=== PATIENT | female | born 1965 | race Caucasian/White ===

== ENCOUNTER 2022-02-14 10:00 | Outpatient (RCR) | payer MEDICARE, OTHER, SELFPAY | END 2022-05-22 11:15 | disposition home or self-care (01) | PROVIDERS: Visit Provider Physician Assistant | DX: G11.9 Hereditary ataxia, unspecified (principal); Z51.89 Encounter for other specified aftercare | CPT/HCPCS: 97110; 97162 ==

== ENCOUNTER 2022-02-19 09:36 | Emergency (ER) | payer MEDICARE, OTHER, SELFPAY ==
[2022-02-19 10:09] VITALS: BP 129/85; PULSE 91; RESP 20; TEMP 37.3; O2SAT 96; BMI 24.4
--- NOTE | 2022-02-19 10:48 | ED_ITS ---
HPI - General Adult General Time Seen by Provider: 10:48 Date Seen: 02/19/22 Chief complaint: Psychiatric Problem/Disorder Stated complaint: Wants to Time Seen by Provider: 02/19/22 10:47 Source: patient, RN notes reviewed and old records reviewed Mode of arrival: ambulatory Limitations: no limitations History of Present Illness HPI narrative: Patient is a 56-year-old female coming into the ER of her own accord stating she wants to . She states she can not do it because she is too chicken of the pain. She has been hospitalized for depression and mental health issues in 1985 and then sometime in after her mom . 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 Her boyfriend is an awesome support to her but she feels like he has become her pulley worker rather than a boyfriend. She had some recent strife with her children. Her 2 daughters were fighting and she got in the middle. Now the daughter with her 3-month-old granddaughter will supposedly never let her see the grandbaby again. She states her life is completely screwed up. She just wants to . She is on BuSpar and escitalopram. Does have some clonazepam but has not used it. She states she has been smoking marijuana to just numb the pain. She alludes to the fact that her children state that she needs help. Related Data Home Medications Medication Instructions Recorded Confirmed buspirone 30 mg tablet 30 mg PO BID 02/19/22 02/19/22 clonazepam 0.5 mg tablet 0.5 mg PO BID 02/19/22 02/19/22 escitalopram oxalate 20 mg tablet 20 mg PO .every morning 02/19/22 02/19/22 hyoscyamine sulfate 0.125 mg tablet 0.125 mg PO Q4H PRN 02/19/22 02/19/22 Allergies Allergy/AdvReac Type Severity Reaction Status Date / Time Sulfa (Sulfonamide Allergy Verified 02/19/22 10:09 Antibiotics) Review of Systems Status of ROS: Reports: 6 or more systems reviewed and unremarkable except as noted in History and below PFSH PFSH Social History Smoking Status: Current some day smoker Do you use any of these nicotine containing products: Other Second hand tobacco smoke exposure: Yes How often do you have a drink containing alcohol: never How often do you have six or more drinks on one occasion: Never AUDIT-C Alcohol total score: 0 Non-prescribed substance use: marijuana (any form) service: No Exam Const: Vital Signs, click to edit/add: Vital Signs - 24 hr 02/19/22 10:09 Temperature 99.1 F Pulse Rate [Apical ] 91 Respiratory Rate 20 Blood Pressure [Ri ght Upper Arm] 129/85 Pulse Oximetry 96 Oxygen Delivery Me thod Room Air Documenting provider has reviewed patient's vital signs: yes Common normals: no apparent distress, average body habitus, oriented x3, no limitations, healthy appearing, alert and well nourished General appearance: other (Crying and tearful during the interaction) HENMT: Common normals: normocephalic, head/scalp atraumatic, hearing grossly normal bilaterally, external ears normal, external nose normal, nasal mucous membranes and turbinates normal, moist oral mucous membranes, oropharynx normal, dentition normal and gingiva normal Head and scalp: normocephalic and atraumatic Nose: external nose normal and nasal mucous membranes and turbinates normal External ear: external ears normal Eye: Common normals: PERRL, EOMs intact bilaterally, conjunctivae normal and no scleral icterus Conjunctiva: conjunctiva(e) normal Pupil: PERRL Neck & C-Spine: Common normals: full ROM, no lymphadenopathy, supple, no meningeal signs, no JVD, thyroid normal and no carotid bruits Thyroid: thyroid normal Resp: Common normals: normal respiratory effort, no retractions, no use of accessory muscles and clear to auscultation bilaterally Auscultation: clear to auscultation bilaterally Cardio: Common normals: no JVD, regular rate, regular rhythm, S1 normal heart sound, S2 normal heart sound, no gallops, no clicks, no murmurs and no rub Rate: regular rate Rhythm: regular rhythm Heart sounds: S1 normal and S2 normal GI: Common normals: Normal to inspection, nondistended, normoactive bowel sounds present, soft to palpation, non-tender, no hepatosplenomegaly, no masses and no bruits Palpation: soft and no hepatosplenomegaly Extremity: Other: Has a bilateral lower extremity braces on. Neuro: Rosy Coma Scale: document GCS findings Rosy coma scale eye opening: Spontaneous (4) Allerton coma scale verbal response: Orientated (5) [place] coma scale motor response: Obey commands (6) [place]erton coma scale total score: 15 Common normals: oriented x3 Sensorium/orientation: alert Meningeal signs: no meningeal signs Other: Has a head tremor and some very minimal truncal ataxia noted. Is noted to walk with a walker. Psych: Common normals: thought process normal (But does perseverate on current situation with her children), cooperative and speech normal Appearance: grossly normal Activity/motor behavior: appropriate eye contact Speech: normal speech Mood and affect: depressed mood, sad and tearful Thought process: normal thought process (But does perseverate on current situation with her children) Thought content: suicidality Attention/concentration: attention grossly intact and concentration grossly intact Memory/cognition: memory grossly intact Skin: Common normals: no rashes or lesions noted General skin exam: no rashes or lesions noted Course Course Hospital Course: We will do the mental health screening laboratory analysis including COVID and toxicology. She will likely show THC use she admits to have been smoking marijuana but doubt will find anything else concerning with her. We will put an order in for [facility]. I will have to wait and see what they feel can be done, if there is possible outpatient resources for her. Hospitalization may need to be considered for her mental health, await the assistance of telehealth. Consultations Consultation #1: Spoke with Alva from [email or web address]. She feels at this time patient is going to need hospitalization. She stated that she did explain to the patient that there were probably be a delay for psychiatric hospitalization and patient expressed some frustration. If we have no placement for patient by tomorrow morning, Alva recommended that we resubmit for another telehealth consultation and see if there is any change. At this time, Alva was not able to get patient to agree to any outpatient plans, really did not feel like she could get her st abilized enough to be made for outpatient followup. Time: 12:45 Vital Signs Vital signs: Initial Vital Signs Temperature 99.1 F 02/19/22 10:09 Temperature Source Temporal Artery Scan 02/19/22 10:09 Pulse Rate 91 02/19/22 10:09 Pulse Rhythm 02/19/22 10:09 Respiratory Rate 20 02/19/22 10:09 Blood Pressure 129/85 02/19/22 10:09 Blood Pressure Mean 99 10/03/22 10:09 Blood Pressure Position Supine 02/19/22 10:09 Pulse Oximetry 96 02/19/22 10:09 Oxygen Delivery Method 02/19/22 10:09 Vital Signs Temperature 99.1 F 02/19/22 10:09 Pulse Rate 91 02/19/22 10:09 Respiratory Rate 20 02/19/22 10:09 Blood Pressure 129/85 02/19/22 10:09 Pulse Oximetry 96 02/19/22 10:09 Oxygen Delivery Method 02/19/22 10:09 Temperature 99.1 F 02/19/22 10:09 Pulse Rate 91 02/19/22 10:09 Respiratory Rate 20 02/19/22 10:09 Blood Pressure 129/85 02/19/22 10:09 Pulse Oximetry 96 02/19/22 10:09 Oxygen Delivery Method 02/19/22 10:09 Medical Decision Making Lab Data Lab results reviewed: Yes I reviewed the patient's lab results Labs: Lab Results 02/19/22 02/19/22 02/19/22 Range/Units 10:42 10:56 11:00 WBC (4.50-11.00) K/uL RBC (4.00-5.20) m/uL Hgb (12.0-16.0) gm/dL Hct (33.0-51.0) % MCV (80-100) fL MCH (26-34) pg MCHC (32-36) gm/dL RDW Coeff of Cyrus (11.5-15.5) % Plt Count (140-440) K/uL Neut % (Auto) (42.0-72.0) % Lymph % (Auto) (20-44) % [place] % (Auto) (0.0-11.0) % Eos % (Auto) (0.0-7.0) % Baso % (Auto) (0.0-3.0) % Neut # (Auto) (1.7-7.0) K/uL Lymph # (Auto) (0.90-2.90) K/uL [place] # (Auto) (0.00-0.90) K/UL Eos # (Auto) (0.00-0.50) K/uL Baso # (Auto) (0.00-0.30) K/uL Abs Immat Gran (auto) (0.00-0.30) K/uL Sodium (135-149) mmol/L Potassium (3.6-5.1) mmol/L Chloride (96-114) mmol/L Carbon Dioxide (20-32) mmol/L BUN (7-30) mg/dL Creatinine (0.5-1.5) mg/dL Estimated Creat Clear Estimated GFR ml/min Glucose (60-115) mg/dL Calcium (8.4-10.6) mg/dL Total Bilirubin (0.1-1.5) mg/dL AST (12-35) U/L ALT (4-35) U/L Alkaline Phosphatase (40-150) U/L Total Protein (6.0-8.3) g/dL Albumin (3.3-5.0) g/dL TSH (0.270-4.200) uIU/mL Free T4 (0.70-1.85) ng/dL Urine Color Yellow (Yellow) Urine Appearance Clear (Clear) Urine pH 6.0 (5.0-8.5) Ur Specific Bowie <= 1.005 (1.000-1.030) Urine Protein Negative (Negative) Urine Glucose (UA) Negative (Negative) Urine Ketones Negative (Negative) Urine Blood Trace-intact A (Negative) Urine Nitrite Negative (Negative) Urine Bilirubin Negative (Negative) Urine Urobilinogen 0.2 (0.2-1.0) Ur Leukocyte Esterase Negative (Negative) Urine RBC 0-2 (0-2) Urine WBC 0-2 (0-5) Ur Squamous Epith Cells Few (None-Few) Urine Bacteria Moderate A (None) Urine Yeast Moderate A (None) Salicylates (1.0-10) mg/dL Urine Opiates Screen Negative (Negative) Ur Oxycodone Screen Negative (Negative) Urine Methadone Screen Negative (Negative) Ur Propoxyphene Screen Negative (Negative) Acetaminophen (10.0-30.0) ug/mL Ur Barbiturates Screen Negative (Negative) U Tricyclic Antidepress Negative (Negative) Ur Phencyclidine Scrn Negative (Negative) Ur Amphetamines Screen Negative (Negative) U Methamphetamines Scrn Negative (Negative) U Benzodiazepines Scrn Negative (Negative) Urine Cocaine Screen Negative (Negative) U Marijuana (THC) Screen POSITIVE A* (Negative) Ur Drug Screen Comment See Note Ethyl Alcohol (0.01-0.03) % SARS-CoV-2 (PCR) Negative SARS-CoV-2 (Negative) 02/19/22 02/19/22 02/19/22 Range/Units 11:15 11:15 11:15 WBC 6.52 (4.50-11.00) K/uL RBC 4.63 (4.00-5.20) m/uL Hgb 13.7 (12.0-16.0) gm/dL Hct 40.9 (33.0-51.0) % MCV 88 (80-100) fL MCH 30 (26-34) pg MCHC 34 (32-36) gm/dL RDW Coeff of Cyrus 13.8 (11.5-15.5) % Plt Count 229 (140-440) K/uL Neut % (Auto) 67.8 (42.0-72.0) % Lymph % (Auto) 27.9 (20-44) % [place] % (Auto) 3.7 (0.0-11.0) % Eos % (Auto) 0.2 (0.0-7.0) % Baso % (Auto) 0.2 (0.0-3.0) % Neut # (Auto) 4.43 (1.7-7.0) K/uL Lymph # (Auto) 1.82 (0.90-2.90) K/uL [place] # (Auto) 0.20 (0.00-0.90) K/UL Eos # (Auto) 0.01 (0.00-0.50) K/uL Baso # (Auto) 0.01 (0.00-0.30) K/uL Abs Immat Gran (auto) 0.01 (0.00-0.30) K/uL Sodium 142 (135-149) mmol/L Potassium 3.9 (3.6-5.1) mmol/L Chloride 107 (96-114) mmol/L Carbon Dioxide 28 (20-32) mmol/L BUN 9 (7-30) mg/dL Creatinine 0.8 (0.5-1.5) mg/dL Estimated Creat Clear 57.07 Estimated GFR 87 ml/min Glucose 104 (60-115) mg/dL Calcium 10.0 (8.4-10.6) mg/dL Total Bilirubin 1.2 (0.1-1.5) mg/dL AST 27 (12-35) U/L ALT 14 (4-35) U/L Alkaline Phosphatase 71 (40-150) U/L Total Protein 7.5 (6.0-8.3) g/dL Albumin 4.7 (3.3-5.0) g/dL TSH 0.242 L (0.270-4.200) uIU/mL Free T4 1.23 (0.70-1.85) ng/dL Urine Color (Yellow) Urine Appearance (Clear) Urine pH (5.0-8.5) Ur Specific Bowie (1.000-1.030) Urine Protein (Negative) Urine Glucose (UA) (Negative) Urine Ketones (Negative) Urine Blood (Negative) Urine Nitrite (Negative) Urine Bilirubin (Negative) Urine Urobilinogen (0.2-1.0) Ur Leukocyte Esterase (Negative) Urine RBC (0-2) Urine WBC (0-5) Ur Squamous Epith Cells (None-Few) Urine Bacteria (None) Urine Yeast (None) Salicylates < 1.0 L (1.0-10) mg/dL Urine Opiates Screen (Negative) Ur Oxycodone Screen (Negative) Urine Methadone Screen (Negative) Ur Propoxyphene Screen (Negative) Acetaminophen < 10.0 L (10.0-30.0) ug/mL Ur Barbiturates Screen (Negative) U Tricyclic Antidepress (Negative) Ur Phencyclidine Scrn (Negative) Ur Amphetamines Screen (Negative) U Methamphetamines Scrn (Negative) U Benzodiazepines Scrn (Negative) Urine Cocaine Screen (Negative) U Marijuana (THC) Screen (Negative) Ur Drug Screen Comment Ethyl Alcohol < 0.01 L (0.01-0.03) % SARS-CoV-2 (PCR) (Negative) Critical Care Time Critical Care Time Critical Care Time: No Discharge Plan Discharge Clinical Impression: Suicidal ideation, Severe major depression Patient Disposition: Xfer Psychiatric Hosp Discharge Location: [facility] Condition: Unchanged Prescriptions: No Action buspirone 30 mg tablet 30 mg PO BID clonazepam 0.5 mg tablet 0.5 mg PO BID escitalopram oxalate 20 mg tablet 20 mg PO .every morning hyoscyamine sulfate 0.125 mg tablet 0.125 mg PO Q4H PRN Label Comments: TAKE 1 TABLET BY MOUTH EVERY 4 HOURS NEEDED. Stand Alone Forms: [employer]Up Info Instructions
[2022-02-19 10:58] LABS: Appearance Urine Clear (Clear); Bilirubin Urine Negative (Negative); Blood Urine Trace-intact (Negative); Color Urine Yellow (Yellow); Glucose Urine Negative (Negative); Ketones Urine Negative (Negative); Leukocyte Esterase Urine Negative (Negative); Nitrite Urine Negative (Negative); Protein Urine Negative (Negative); Specific Gravity Urine <= 1.005 (1.000-1.030); Urobilinogen Urine 0.2 (0.2-1.0)
[2022-02-19 11:33] LABS: Bacteria Urine Moderate; RBC Urine 0-2 (0-2); Squamous Epithelial Cell Urine Few (None-Few); WBC Urine 0-2 (0-5)
[2022-02-19 11:45] LABS: Amphetamine Screen Urine Negative (Negative); Barbiturate Screen Urine Negative (Negative); Benzodiazepines Screen Urine Negative (Negative); Cocaine Screen Urine Negative (Negative); Methadone Screen Urine Negative (Negative); Methamphetamines Screen Urine Negative (Negative); Opiate Screen Urine Negative (Negative); Oxycodone Screen Urine Negative (Negative); Phencyclidine Screen Urine Negative (Negative); Tricyclic Antidepressant Urine Negative (Negative)
--- NOTE | 2022-02-19 11:45 | ED.NURSE ---
DEC assessment started.
[2022-02-19 11:52] LABS: Albumin* 4.7 g/dL (3.3-5.0); Chloride* 107 mmol/L (96-114)
[2022-02-19 11:53] LABS: Potassium* 3.9 mmol/L (3.6-5.1); Sodium* 142 mmol/L (135-149)
[2022-02-19 11:55] LABS: Aspartate Amino Transferase* 27 U/L (12-35); Bilirubin Total* 1.2 mg/dL (0.1-1.5); Carbon Dioxide* 28 mmol/L (20-32); Creatinine* 0.8 mg/dL (0.5-1.5); Est. Creatinine Clearance* 57.07; Estimated Glomerular Filt Rate 87 ml/min
[2022-02-19 11:56] LABS: Alanine Aminotransferase* 14 U/L (4-35); Alkaline Phosphatase* 71 U/L (40-150); Blood Urea Nitrogen* 9 mg/dL (7-30); Glucose* 104 mg/dL (60-115); Total Protein* 7.5 g/dL (6.0-8.3)
[2022-02-19 12:08] LABS: Acetaminophen* < 10.0 ug/mL (10.0-30.0); Ethanol* < 0.01 % (0.01-0.03); Salicylate* < 1.0 mg/dL (1.0-10)
--- OUTSIDE RECORDS SUMMARY | 2022-02-19 12:23 | XMS_ITS | Clinical Summary ---
:1965 Author Organization [employer] [place] [address] Care Team Providers Name Role Phone Angela Naranjo Primary Care Provider Allergies Active Allergy Reactions Severity Noted Date Comments Sulfa (Sulfonamide Antibiotics) Rash Low 7 Medications Medication Sig Dispensed Refills Start Date End Date Status cholecalciferol (VITAMIN Take 1 capsule 0 10/06/2010 Active D) 1,000 unit capsule by mouth once daily. miscellaneous medical Shower chair 1 Units 0 06/25/2019 Active supply miscIndications: Ataxia, unspecified WalkerIndications: Walker with wheels,seat,hand brakes,and basket for home use. 1 Device 0 03/24/2020 Active Ataxia, unspecified 99 years. busPIRone (BUSPAR) 30 mg Take 1 Tablet 180 Tablet 3 05/30/2021 Active tabletIndications: HILARIA (30 mg) by (generalized anxiety mouth 2 times disorder) daily. escitalopram oxalate Take 1 Tablet 90 tablet. 3 05/30/2021 Active (LEXAPRO) 20 mg (20 mg) by tabletIndications: mouth every Generalized anxiety morning. disorder turmeric-g.tea-pterostil Take by mouth. 0 08/09/2021 Active -brocc (Nrf2 Activator) [id number] mg capIndications: Chronic diarrhea, Constipation, unspecified constipation type azithromycin (ZITHROMAX) Take 500 mg (2 6 Tablet 0 11/30/2021 Active 250 mg tabs) by mouth tabletIndications: Acute on day 1, then non-recurrent maxillary 250 mg (1 tab) sinusitis daily for days 2-5. dicyclomine (BENTYL) 10 Take 1 Capsule 90 Capsule 1 12/01/2021 Active mg capsuleIndications: (10 mg) by Irritable bowel syndrome mouth every 6 with diarrhea hours if needed (abdominal pain/diarrhea). clonazePAM (KLONOPIN) Take 1 Tablet 60 Tablet 5 12/21/2021 Active 0.5 mg (0.5 mg) by tabletIndications: mouth in the Generalized anxiety morning and 1 disorder Tablet (0.5 mg) in the evening. Active Problems Problem Noted Date Hereditary ataxia, unspecified 06/20/2021 Olecranon bursitis of right elbow 11/20/2020 Major depressive disorder, recurrent episode, moderate 04/11/2020 Closed fracture of left proximal tibia marginal stable 01/31/2017 Rupture of anterior cruciate ligament of left knee 03/2017 Contusion of tibial plateau, left 01/28/2017 Menorrhagia 08/13/2013 Cyst of ovary 08/13/2013 Fibroid uterus 07/30/2013 Generalized anxiety disorder 05/30/2010 Ataxia, unspecified 03/29/2010 Vitamin D deficiency 01/05/2010 Polyp of colon Resolved Problems Problem Noted Date Resolved Date S/P THEA-BSO 08/13/2013 08/13/2013 Grief 03/29/2010 10/19/2021 MDD (major depressive disorder), recurrent, in partial 02/1605/23/2020 remission Major depressive disorder, recurrent episode, in partial or 10/23/2007 02/11/2012 unspecified remission Encounters Date Type Specialty Care Team Description 02/19/2022 Nurse Triage Angela Naranjo, Depress ion HARRY 02/19/2022 Telephone Angela Naranjo PA 01/18/2022 Phone Office Visit Malathi Concepcion Phon e Visit [facility] 12/21/2021 Phone Office Visit Malathi Concepcion Phon e Visit; Trmt Plan [facility] 12/21/2021 Refill Angela Naranjo, Refill Request HARRY (clonazePAM (KL ONOPIN) 0.5 mg tablet) 12/01/2021 Telephone Angela Naranjo Questio ns PA 11/30/2021 Office Visit Angela Naranjo, Medicat ion Management PA (Diarrhea since last November 15 ); Nose Pr oblem (Had a runny nose an d sinus pressure, took home test and were negati ve for COVID-19, Sore throat ) 11/30/2021 Travel 11/29/2021 Telephone Angela Naranjo, Prior A uthorization PA (hyoscyamine (L evsin) 0.125 mg tablet (DENIED)) 11/22/2021 Phone Office Visit Malathi Concepcion Phon e Visit [facility] 11/22/2021 Travel from Last 3 Months Immunizations Name Administration Dates Next Due AMB Influenza, IIV3 (Age >=3 02/21/2013, 03/14/2011, 009 years)(Flu Clinic Only) AMB Influenza, IIV4 PF (=>6 mos 03/03/2015 Flulaval,Fluzone Fluarix)(Flu Clinic Only) COVID-19 vaccine (Moderna 09/07/2020, 08/10/2020 100mcg/0.5mL) PF, MDV Influenza A (H1N1), Inactivated 05/05/2009 Influenza, IIV3 (Age 6-35 mos) 03/14/2011 Influenza, IIV3 (Age >=3 years) 02/11/2012, 04/17/2010 Influenza, IIV4 02/19/2020, 03/10/2019, 02/04/2018, 03/19/2016, 03/09/2014 Influenza, IIV4 (=>6mos) MDV 02/11/2017 Tdap 05/20/2010 Family History Medical History Relation Name Comments Cancer Father Leukemia Father Lung cancer Mother Cancer-breast Sister Relation Name Status Comments Brother Alive Daughter Alive Father Maternal Grandfather Maternal Grandmother Mother Paternal Grandfather Paternal Grandmother Sister Alive Son Alive Social History Tobacco Use Types Packs/Day Years Used Date Never Smoker Smokeless Tobacco: Never Used Tobacco Cessation: Counseling Given: Yes Alcohol Use Standard Drinks/Week Comments No 0 (1 standard drink = 0.6 oz pure alcoho l) Sex Assigned at Date Recorded Female 05/24/2020 3:18 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 Obstetrics History Para Term AB IAB SAB Ectopic Multiple Living Live Births 3 3 Date Outcome GA Total Labor/2nd/3rd Weight Sex Delivery Anes PTL Annemarie A 1 A5 Name Clin Labor Last Filed Vital Signs Vital Sign Reading Time Taken Comments Blood Pressure 110/60 11/30/2021 9:59 AM CDT Pulse 74 11/30/2021 9:59 AM CDT Temperature 36.7 ??C (98.1 ??F) 10/27/2021 12:14 PM CDT Respiratory Rate 16 10/27/2021 12:14 PM CDT Oxygen Saturation 95% 10/27/2021 12:14 PM CDT Inhaled Oxygen Concentration - - Weight 55.3 kg (122 lb) 11/30/2021 9:59 AM CDT Height 152.4 cm (5') 06/19/2021 10:12 AM [employer] MANAGER Body Mass Index 23.83 06/19/2021 10:12 AM [employer] MANAGER Plan of Treatment Health Maintenance Due Date Last Done Comments Hepatitis C screening for age 0206/29/1984 18-79 Zoster (shingles) series for age 0206/29/2016 50+ (1 of 2) Tetanus booster 05/20/2020 05/20/2010, 05/20/2010 COVID-19 vaccine series (4 - 06/01/2021 04/06/2021, 021, Booster for Moderna series) 08/10/2020 Mammogram for age 45-75 09/07/2021 09/07/2020, 08/31/2020, 07/09/2019, Additional history exists Influenza for age 50-64 01/18/2022 02/19/2020, 03/10/2019, 02/04/2018, Additional history exists Depression screening for age 12+ 04/19/2022 04/19/2021, , 02/13/2021, Additional history exists BMI (ht and wt on same day) for 06/19/2022 06/19/2021, 07/05/2018, age 18+ 12/11/2018, Additional history exists Lipids for age 45-75 04/23/2024 04/23/2019, 10/21/2017, 06/07/2016, Additional history exists Colonoscopy through age 75 02/27/2026 02/27/2021, 8 Tdap Completed 05/20/2010 Results Not on filefrom Last 3 Months Insurance Payer Benefit Plan / Subscriber ID Effective Dates Phone Addre ss Type Group MEDICARE PART MEDICARE PART A HB [id number] 2012-Presen ATTN: CLAIMS A - HB USE ONLY t [address] [place] [address] MEDICARE PART MEDICARE PART B HB [id number] 2012-Presen ATTN: CLAIMS B - HB USE ONLY t [address] [place] [address] MEDICARE PART MEDICARE PART A HB [id number] 2012-Presen ATTN: CLAIMS A - HB USE ONLY t [address] [place] [address] MEDICARE - PB MEDICARE PB ONLY [id number] 2015-Prese ATTN: CLAIMS USE ONLY nt [address] [place] [address] MEDICA [place] MEDICA [id number] 2021-Presen [address] [place] [address] MEDICAID [place] MEDICA[place] [id number] 2012-Presen [address] [place] [address] Lizzie Mckeon Motor Vehicle Self 1965 [address] (Home) [place] [address] [employer] Occ Employer [phone] ATTN DEANNA [employer] (Work) [address] 1 Advance Directives Latest Code Status on File Code Status Date Activated Date Inactivated Comments Full Code 08/13/2013 6:06 AM 08/16/2013 12:58 PM Care Teams Pipeline Operator Relationship Specialty Start Date End Date Angela Naranjo PA PCP - General Physician Tracer Bullet Section Supervisor 06/16/[address] [place] [address] JULIANNA WALSH [id number]
[2022-02-19 12:38] LABS: Basophils Absolute Auto 0.01 K/uL (0.00-0.30); Basophils Percent Auto 0.2 % (0.0-3.0); Eosinophils Absolute Auto 0.01 K/uL (0.00-0.50); Eosinophils Percent Auto 0.2 % (0.0-7.0); Hematocrit 40.9 % (33.0-51.0); Hemoglobin* 13.7 gm/dL (12.0-16.0); Immature Granulocytes Abs Auto 0.01 K/uL (0.00-0.30); Lymphocytes Absolute Auto 1.82 K/uL (0.90-2.90); Lymphocytes Percent Auto 27.9 % (20-44); Mean Corpuscular HGB Conc 34 gm/dL (32-36); Mean Corpuscular Hemoglobin 30 pg (26-34); Mean Corpuscular Volume 88 fL (80-100); Monocytes Percent Auto 3.7 % (0.0-11.0); Neutrophils Absolute Auto 4.43 K/uL (1.7-7.0); Neutrophils Percent Auto 67.8 % (42.0-72.0); Platelet Count* 229 K/uL (140-440); RDW Coefficient of Variation % 13.8 % (11.5-15.5); Red Blood Count 4.63 m/uL (4.00-5.20); White Blood Count* 6.52 K/uL (4.50-11.00)
[2022-02-19 12:40] LABS: Slide Review Reflex No
[2022-02-19 12:48] LABS: SARS PCR* Negative SARS-CoV-2 (Negative)
[2022-02-19 12:57] LABS: TSH With Reflex to FT4* 0.242 uIU/mL (0.270-4.200)
[2022-02-19] MEDS: ACETAMINOPHEN 500 MG TABLET 1000 MG PO (13:09)
--- NOTE | 2022-02-19 13:31 | ED.NURSE ---
Meal provided to pt.
[2022-02-19 13:47] LABS: Free T4 Free Thyroxine* 1.23 ng/dL (0.70-1.85)
--- NOTE | 2022-02-19 16:41 | ED.NURSE ---
Pt accepted by Dr. Mccabe at [facility]. Dispatch notified by AURELIANO Canela. Report given to [facility] RN. Dispatch to call with YOBANY.
[2022-02-19 18:04] LABS: Cannabinoid Screen Urine POSITIVE (Negative)
--- NOTE | 2022-02-19 18:34 | ED.NURSE ---
Pt ate 100% of meal tray. Aware she is going to [facility] and is agreeable to this, although concerned about distance. Emotional support offered. SO at bedside. Pt denies further needs at this time.
--- NOTE | 2022-02-19 19:04 | ED.NURSE ---
Report given to AURELIANO Vee.
--- NOTE | 2022-02-19 19:44 | ED.NURSE ---
[facility] cot for EMS transport.
[2022-02-19 19:45] VITALS: BP 117/85; PULSE 67; RESP 16; TEMP 36.8; O2SAT 96
[2022-02-19 20:00] VITALS: BP 117/85; PULSE 67; RESP 16; TEMP 36.8
== END 2022-02-19 20:01 ==
PROVIDERS: Emergency Provider Family Medicine
DX: R45.851 Suicidal ideations (principal); F33.2 Major depressive disorder, recurrent severe without psychotic features
CPT/HCPCS: 36415; 80053; 80143; 80179; 80306; 81001; 82077; 84439; 84443; 85025; 87086; 87635; 99284; 99285; A9270

== ENCOUNTER 2022-02-19 19:40 | Outpatient (CLI) | payer MEDICARE, OTHER, SELFPAY ==
--- OUTSIDE RECORDS SUMMARY | 2022-04-16 14:30 | XMS_ITS | Clinical Summary ---
:1965 Author Organization [employer] [facility] [place] [address] Care Team Providers Name Role Phone Angela Naranjo Primary Care Provider Allergies Active Allergy Reactions Severity Noted Date Comments Sulfa (Sulfonamide Antibiotics) Rash Low 7 Medications Medication Sig Dispensed Refills Start Date End Date Status cholecalciferol Take 1 capsule 0 10/06/2010 Active (VITAMIN D) 1,000 unit by mouth once capsule daily. miscellaneous medical Shower chair 1 Units 0 06/25/2019 Active supply miscIndications: Ataxia, unspecified WalkerIndications: Walker with wheels,seat,hand brakes,and basket for home use. 1 Device 0 03/24/2020 Active Ataxia, unspecified 99 years. busPIRone (BUSPAR) 30 Take 1 Tablet 180 Tablet 3 05/30/2021 Active mg tabletIndications: (30 mg) by mouth HILARIA (generalized 2 times daily. anxiety disorder) turmeric-g.tea-pterosti Take by mouth. 0 08/09/2021 Active l-brocc (Nrf2 Activator) 424-213-05-30 mg capIndications: Chronic diarrhea, Constipation, unspecified constipation type dicyclomine (BENTYL) 10 Take 1 Capsule 90 Capsule 1 12/01/2021 Active mg capsuleIndications: (10 mg) by mouth Irritable bowel every 6 hours if syndrome with diarrhea needed (abdominal pain/diarrhea). clonazePAM (KLONOPIN) Take 1 Tablet 60 Tablet 5 12/21/2021 Active 0.5 mg (0.5 mg) by tabletIndications: mouth in the Generalized anxiety morning and 1 disorder Tablet (0.5 mg) in the evening. desvenlafaxine Take 1 Tablet 90 Tablet 3 03/01/2022 Active succinate (PRISTIQ) 50 (50 mg) by mouth mg Extended-Release once daily. tabletIndications: Major depressive disorder, recurrent episode, moderate (HC), Generalized anxiety disorder QUEtiapine (SEROQUEL) Take 1 Tablet 180 Tablet 0 03/01/2022 Active 25 mg (25 mg) by mouth tabletIndications: 2 times daily if Major depressive needed for disorder, recurrent Agitation episode, moderate (HC), (severe Generalized anxiety anxiety). disorder Walker - 4 For home use. 1 Each 0 03/01/2022 Acti ve wheelsIndications: Length of need: Hereditary ataxia, 99 walker with unspecified (HC) wheels and a seat Active Problems Problem Noted Date Hereditary ataxia, [...] Encounters Date Type Specialty Care Team Description 04/16/2022 Phone Office Visit Malathi Concepcion [facility] 04/02/2022 Phone Office Visit Malathi Concepcion Phon e Visit Ct [facility] 03/29/2022 Phone Office Visit Angela Naranjo P hone Visit (Follow up); HARRY Error-please di scar (NO SHOW) 03/26/2022 Phone Office Visit Malathi Concepcion Phon e Visit; TrmMATY Viera Plan 03/13/2022 Office Visit Parvin Stark [facility] Consultants Vis it 03/13/2022 Travel 03/06/2022 Office Visit Parvin Stark [facility] Vis it 03/05/2022 Travel 03/04/2022 Telephone Angela Naranjo, Prior A uthorization PA (desvenlafaxine succinate (TIRSO TIQ) 50 mg Extended-Rel ease tablet Approved 02/02/2022-unti l further notice) 03/01/2022 Office Visit Angela Naranjo, Follow Up (ER ); MITCHEL PA Supply; Immunization/In jection (COVID-19 vacci ne) 03/01/2022 Travel 02/27/2022 Travel 02/26/2022 Office Visit Parvin Stark [facility] Consultants Vis it 02/26/2022 Travel 02/26/2022 Telephone Angela Naranjo, Prior A uthorization PA (lissa) 02/19/2022 Nurse Triage Angela Naranjo, Depress ion PA 02/19/2022 Telephone Angela Naranjo, PA 01/18/2022 Phone Office Visit Malathi Concepcion Phon e Visit MATY Fofana from Last 3 Months Immunizations Name Administration Dates Next Due AMB Influenza, IIV3 (Age >=3 02/21/2013, 03/14/2011, 009 years)(Flu Clinic Only) AMB Influenza, IIV4 PF (=>6 mos 03/03/2015 Flulaval,Fluzone Fluarix)(Flu Clinic Only) COVID-19 vaccine (Moderna 09/07/2020, 08/10/2020 100mcg/0.5mL) PF, MDV COVID-19 vaccine (CinnaBid-ChromoTek 03/01/2022 30mcg/0.3mL) 12YO+ BIVALENT BOOSTER PF, MDV Influenza A (H1N1), Inactivated 05/05/2009 Influenza, IIV3 (Age 6-35 mos) 03/14/2011 Influenza, IIV3 (Age >=3 years) 02/11/2012, 04/17/2010 Influenza, IIV4 02/21/2022, 03/07/2021, 02/19/2020, 03/10/2019, 02/04/2018, 03/19/2016, 03/09/2014 Influenza, IIV4 (=>6mos) MDV 02/11/2017 Tdap 03/01/2022, 05/20/2010 Family History Medical History Relation Name [...] at Date Recorded Female 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 Obstetrics History Para Term AB IAB SAB Ectopic Multiple Living Live Births 3 3 Date Outcome GA Total Labor/2nd/3rd Weight Sex Delivery Anes PTL Annemarie A 1 A5 Name Clin Labor Last Filed Vital Signs Vital Sign Reading Time Taken Comments Blood Pressure 118/72 03/01/2022 10:46 AM CDT Pulse 70 03/01/2022 10:46 AM CDT Temperature 36.7 ??C (98.1 ??F) 10/27/2021 12:14 PM CDT Respiratory Rate 16 10/27/2021 12:14 PM CDT Oxygen Saturation 95% 10/27/2021 12:14 PM CDT Inhaled Oxygen Concentration - - Weight 57.3 kg (126 lb 4.8 oz) 03/01/2022 10:46 AM CDT Height 152.4 cm (5') 06/19/2021 10:12 AM TENNIS CENTRE MANAGER Body Mass Index 24.67 06/19/2021 10:12 AM TENNIS CENTRE MANAGER Plan of Treatment Upcoming Encounters Date Type Specialty Care Team Description 04/25/2022 Phone Office Visit Cristiano Concepcion [facility] [address] [place] [address] (Wo rk) 05/21/2022 Phone Office Visit Cristiano Concepcion [facility] [address] [place], [place] [address] (Wo rk) 05/29/2022 Phone Office Visit Cristiano Concepcion, [facility] [address] [place], [place] [address] (Wo rk) 06/05/2022 Phone Office Visit Cristiano Concepcion, [facility] [address] [place], [place] [address] (Wo rk) 06/12/2022 Phone Office Visit Cristiano Concepcion, [facility] [address] [place], [place] [address] (Wo rk) 06/19/2022 Phone Office Visit Cristiano Concepcion, [facility] [address] [place], [place] [address] (Wo rk) Health Maintenance Due Date Last Done Comments HIV for age 15-65 1981 Hepatitis C screening for age 0206/29/1984 18-79 Zoster (shingles) series for age 0206/29/2016 50+ (1 of 2) Mammogram for age 45-75 09/07/2021 09/07/2020, 08/31/2020, 07/09/2019, Additional history exists BMI (ht and wt on same day) for 06/19/2022 06/19/2021, 11/19, age 18+ 12/11/2018, Additional history exists Depression screening for age 12+ 03/13/2023 03/13/2022, 05/2020, 02/16/2021, Additional history exists Lipids for age 45-75 04/23/2024 04/23/2019, 10/21/2017, 06/07/2016, Additional history exists Colonoscopy through age 75 02/27/2026 02/27/2021, 8 Tetanus booster 03/01/2032 03/01/2022, 05/20/2010, 05/20/2010 Influenza for age 50-64 Completed 02/21/2022, 03/07/2021, 02/19/2020, Additional history exists COVID-19 vaccine series Completed 03/01/2022, 04/06/2021, 09/07/2020, Additional history exists Tdap Completed 03/01/2022, 05/20/2010 Results Not on filefrom Last 3 Months Insurance Payer Benefit Plan / Subscriber ID Effective Dates Phone Addre ss Type Group MEDICARE PART MEDICARE PART A HB [id number] 2012-Presen ATTN: CLAIMS A - HB USE ONLY [place] [address] [place] [address] MEDICARE PART MEDICARE PART B HB [id number] 2012-Presen ATTN: CLAIMS B - HB USE ONLY t [address] [place] [address] MEDICARE PART MEDICARE PART A HB [id number] 2012-Presen ATTN: CLAIMS A - HB USE ONLY t [address] [place] [address] MEDICARE - PB MEDICARE PB ONLY [id number] 2015-Prese ATTN: CLAIMS USE ONLY nt [address] [place] [address] MEDICA [place] MEDICA [id number] 2021-Presen [address] [place] [address] MEDICAID [place]ICA[place] [id number] 2012-Presen [address] [place] [address] PROACT RADHA [facility] Employer [phone] ATTN [employer] (Work) INA [address] JULIANNA GARCIA 5512 1 Advance Directives Latest Code Status on File Code Status Date Activated Date Inactivated Comments Full Code 08/13/2013 6:06 AM 08/16/2013 12:58 PM Care Teams Boatswains Mate Relationship Specialty Start Date End Date Angela Naranjo PA PCP - General Physician Sales Agent Casualty Insurance 06/16/[address] [place] [address] JULIANNA Reid [id number]
== END 2022-02-19 19:41 | disposition home or self-care (01) ==
LOC: AMB 04-16 13:47
PROVIDERS: Visit Provider Family Medicine
DX: F32.9 Major depressive disorder, single episode, unspecified (principal); R45.851 Suicidal ideations
CPT/HCPCS: A0425; A0428

== ENCOUNTER 2023-03-05 09:08 | Outpatient (CLI) | payer MEDICARE, OTHER, SELFPAY | END 2023-03-05 09:09 | disposition home or self-care (01) | LOC: NFLDREF 19:44 | PROVIDERS: Visit Provider Registered Nurse | DX: R30.0 Dysuria (principal); N39.0 Urinary tract infection, site not specified | CPT/HCPCS: 87086; 87186 ==

== ENCOUNTER 2023-05-15 09:55 | Outpatient (CLI) | payer MEDICARE, OTHER, SELFPAY ==
--- NOTE | 2023-05-15 10:15 | CRLHL7_ITS ---
For Patients: As a result of the Cures Act, medical imaging exams and procedure reports are released immediately into your electronic medical record. You may view this report before your referring provider. If you have questions, please contact your health care provider. BILATERAL SCREENING MAMMOGRAM WITH COMPUTER-AIDED DETECTION AND TOMOSYNTHESIS TECHNIQUE: CC and MLO views were obtained. These mammographic images have been obtained using full-field digital technique. These mammographic images were interpreted with the benefit of computer-aided detection. Breast Tomosynthesis was used in this interpretation. COMPARISON FILM: 09/07/20, 08/31/20, 07/09/19. FINDINGS: There are scattered areas of fibroglandular density IMPRESSION: There is no radiographic evidence for malignancy. ASSESSMENT: BI-RADS Category 1: Negative RECOMMENDATION: Routine screening mammogram in 1 year. A lay language report of this examination will be provided to the patient. Quintin Tierney M.D. Diagnostic Radiologist [email or web address] CLARA/[email or web address] / be/Dictated by: Quintin Tierney MD @ 05/15/2023 11:26:00 AM (Electronically Signed)
== END 2023-05-15 09:56 | disposition home or self-care (01) ==
LOC: MAMMO 09:56
PROVIDERS: Visit Provider Physician Assistant
DX: Z12.31 Encounter for screening mammogram for malignant neoplasm of breast (principal)
CPT/HCPCS: 77063; 77067

== ENCOUNTER 2024-03-27 07:41 | Emergency (ER) | payer MEDICARE, MEDICAID, SELFPAY ==
[2024-03-27 07:51] VITALS: BP 131/82; PULSE 118; RESP 20; TEMP 36.1; O2SAT 98; BMI 30.3
--- NOTE | 2024-03-27 08:04 | ED_ITS ---
HPI - General Adult General Time Seen by Provider: 08:05 Date Seen: 03/27/24 Chief complaint: Headache/Migraine Stated complaint: migraine, w/vomiting and diarrhea Time Seen by Provider: 03/27/24 08:03 Source: patient and RN notes reviewed Mode of arrival: ambulatory Limitations: no limitations History of Present Illness HPI narrative: This 58-year-old female is coming in with severe headache which she states is typical of her migraine. She did see the scotoma or spots before coming. She has a history of migraine headaches like this, had not had him for while but have come back the last 3 months. She does not have any home remedies for this. She is not having any nocturnal awakenings. She does have nausea and vomiting now with his headache, she has had a little diarrhea. No fevers or chills. She is tearful stating she needs some pain medicines. She denies any other neurologic changes with this headache. She has underlying hereditary ataxia. She states she will sometimes get diarrhea with her headaches on questioning. She does not feel she has an illness, a did bring up with her that COVID can give headaches, can have GI symptoms with this. She does not want to be tested, states she just took her COVID vaccine recently. She really just needs medication for her headache per her report. Related Data Home Medications ?Medication ?Instructions ?Recorded ?Confirmed buspirone 30 mg tablet 30 mg PO BID 02/19/22 10/17/23 clonazepam 0.5 mg tablet 0.5 mg PO BID 02/19/22 10/17/23 cholecalciferol (vitamin D3) 25 25 mcg PO QDAY 03/05/23 10/17/23 mcg (1,000 unit) capsule desvenlafaxine succinate 100 mg 100 mg PO DAILY 03/05/23 10/17/23 tablet,extended release 24 hr gabapentin 300 mg capsule mg PO 03/05/23 10/17/23 saryweng-xmpy-ojev 8 mg-folic 400 1 tab PO QDAY 03/05/23 10/17/23 mcg-K 50 mcg-lutein 300 mcg tablet (Multivitamin Women 50 Plus) Allergies Allergy/AdvReac Type Severity Reaction Status Date / Time Sulfa (Sulfonamide Allergy Verified 10/17/23 13:11 Antibiotics) Review of Systems Status of ROS: Reports: 6 or more systems reviewed and unremarkable except as noted in History and below PFSH PFSH Social History Smoking Status: Never smoker Do you use any of these nicotine containing products: None and Other Second hand tobacco smoke exposure: Yes How often do you have a drink containing alcohol: never How often do you have six or more drinks on one occasion: Never AUDIT-C Alcohol total score: 0 Non-prescribed substance use: marijuana (any form) service: No Exam Const: Vital Signs, click to edit/add: Vital Signs - 24 hr 03/27/24 07:51 Temperature 96.9 F L Pulse Rate [Pulse Oximeter] 118 H Respiratory Rate 20 Blood Pressure [Ri ght Upper Arm] 131/82 Pulse Oximetry 98 Oxygen Delivery Me thod Room Air This 58-year-old female is alert, interactive, tearful at times. Her speech is normal. She does have baseline tremor of her head, her strength in her extremities is 5/5 and symmetric. She does have braces on her lower extremities. Speech is normal, watching her face as she seems to have symmetrical facial function. She prefers to keep her eyes closed. She is mildly hyperventilating but lungs are clear anteriorly. CV slightly fast but regular, no murmur. Abdomen is soft, nontender, nondistended. Documenting provider has reviewed patient's vital signs: yes Course Course ED Course: This patient is presenting with migraine, she feels like this is baseline for her migraines, no nocturnal awakenings. She is quite tearful and distraught about needing medication. Will have nursing staff established an IV. We will start with some normal saline, Benadryl and Reglan. Do not see that she needs any labs or neuro imaging at this time. We will see how she responds, can consider further medicine. Reevaluation(s) Time of Reevaluation #1: 09:18 Reevaluation #1: Patient definitely seems more alert, eyes are open. She is not sure that the pain is much improved but she certainly seems less nauseous and less symptomatic visibly on talking to her. Will give her some IV Toradol. She would like to start drinking, do think that is fine. Will see if she responds to the Toradol, plan on discharge at that time if Toradol is helpful. Time of Reevaluation #2: 10:14 Reevaluation #2: The patient does look quite good. She states her nausea is resolved. She is feeling a little bit better. She does feel if she could get a bit more Toradol that would be helpful. Will give her another 15 mg IV Toradol for a total of 30 mg. She is comfortable proceeding home after that. Vital Signs Vital signs: Initial Vital Signs Temperature 96.9 F L 03/27/24 07:51 Temperature Source Temporal Artery Scan 03/27/24 07:51 Pulse Rate 118 H 03/27/24 07:51 Pulse Rhythm Regular 03/27/24 07:51 Respiratory Rate 20 03/27/24 07:51 Blood Pressure 131/82 03/27/24 07:51 Blood Pressure Mean 98 03/27/24 07:51 Blood Pressure Position Supine 03/27/24 07:51 Pulse Oximetry 98 03/27/24 07:51 Oxygen Delivery Method Room Air 03/27/24 07:51 Vital Signs Temperature 96.9 F L 03/27/24 07:51 Pulse Rate 118 H 03/27/24 07:51 Respiratory Rate 20 03/27/24 07:51 Blood Pressure 131/82 03/27/24 07:51 Pulse Oximetry 98 03/27/24 07:51 Oxygen Delivery Method Room Air 03/27/24 07:51 Temperature 96.9 F L 03/27/24 07:51 Pulse Rate 118 H 03/27/24 07:51 Respiratory Rate 20 03/27/24 07:51 Blood Pressure 131/82 03/27/24 07:51 Pulse Oximetry 98 03/27/24 07:51 Oxygen Delivery Method Room Air 03/27/24 07:51 Medications Administered Medications: Discontinued Medications Generic Name Dose Route Start Last Admin Trade Name Freq PRN Reason Stop Dose Admin Diphenhydramine HCl 25 mg 03/27/24 08:11 03/27/24 08:38 Diphenhydramine 50 Mg/Ml Inj IVP 03/27/24 08:12 25 mg ONCE ONE Administration Sodium Chloride 500 mls @ 500 mls/hr 03/27/24 08:11 03/27/24 09:43 0.9 % Sodium Chloride 500 Ml IV 03/27/24 09:10 Infused .Q1H ONE Infusion Metoclopramide HCl 10 mg/ 102 mls @ 306 mls/hr 03/27/24 08:11 03/27/24 09:00 Sodium Chloride IVPB 03/27/24 08:12 Infused ONCE ONE Infusion Ketorolac Tromethamine 15 mg 03/27/24 09:18 03/27/24 09:38 Ketorolac 15 Mg/Ml Inj IVP 03/27/24 09:19 15 mg ONCE ONE Administration Discharge Plan Discharge Clinical Impression: Migraine Instructions: Migraine Headache (ED) Additional Instructions: Go home and rest, need to stay hydrated. Can use Tylenol and ibuprofen per bottle directions for any residual headache. If your headache does worsen, have further concerns, please return to the ER for further evaluation. Activity Level: Activity as Tolerated Prescriptions: No Action desvenlafaxine succinate 100 mg tablet extended release 24 hr 100 mg PO DAILY gabapentin 300 mg capsule PO cholecalciferol (vitamin D3) 25 mcg (1,000 unit) capsule 25 mcg PO QDAY Multivitamin Women 50 Plus 8 mg iron-400 mcg-50 mcg tablet 1 tab PO QDAY buspirone 30 mg tablet 30 mg PO BID clonazepam 0.5 mg tablet 0.5 mg PO BID Follow Up/Referrals: Provider,Not a Local [Non-Staff] - Stand Alone Forms: [facility] Info Instructions
[2024-03-27] MEDS: diphenhydrAMINE 50 MG/ML inj 25 MG IVP (08:38)
[2024-03-27] MEDS: METOCLOPRAMIDE HCL 10 MG in 0.9 % SODIUM CHLORIDE 100 ml 100 ML 306 MG IVPB (08:38)
[2024-03-27] MEDS: 0.9 % SODIUM CHLORIDE 500 ML 500 ML IV (08:39)
--- OUTSIDE RECORDS SUMMARY | 2024-03-27 09:25 | XMS_ITS | Clinical Summary ---
Author Organization [facility] Address [address] [address] Phone Care Team Providers Care Program Director Name Role Phone Angela Naranjo PA-C Primary Care Provider [phone] Allergies Active Allergy Reactions Criticality Noted Date Comments Sulfa Drugs Unknown 03/04/2023 Medications clonazePAM (KlonoPIN) 0.5 MG tablet Take 0.5 mg by mouth two times a day. 11/26/2022 Active QUEtiapine (SEROquel) 25 MG tablet Take 25 mg by mouth two times a day as needed. 08/23/2022 Active cholecalciferol (D 1000) 1000 UNIT capsule Take 1 Capsule by mouth one time a day. 10/06/2010 Active desvenlafaxine succinate ER (Pristiq) 100 MG Tablet Extended Release 24 Hour Take 100 mg by mouth every morning. 02/28/2023 Active Misc. Devices (Walker [place] Wheels) Misc For home use. Length of need: 99 walker with wheels and a seat 03/01/2022 Active Multiple Vitamin (One-A-Day Essential) Tablet Take 1 Tablet by mouth one time a day. 02/14/2023 Active busPIRone (Buspar) 30 MG tablet Take 30 mg by mouth two times a day. 08/14/2022 Active gabapentin (Neurontin) 100 MG capsule Take 100 mg by mouth two times a day. Active Surgical History Surgery Date Site/Laterality Comments FOOT FRACTURE SURGERY N/A closed fracture unspecified bones of foot INTRAOCULAR LENS PROSTHESIS INSERTION 03/13/2023 Eye/Bilateral Procedure: EXTRACTION LENS WITH IMPLANT; Surgeon: Omer Rubio MD; Location: [facility] OR Medical devices from this surgery are in the Medical Devices section. Medical History Medical History Date Comments Ataxia Anxiety disorder Fibroid uterus Menorrhagia Follicular cyst of ovary Anterior cruciate ligament tear Fracture of left tibia Depression Bursitis of right elbow Social History Tobacco Use Types Packs/Day Years Used Date Smoking Tobacco: Never Smokeless Tobacco: Never Alcohol Use Standard Drinks/Week Comments Not Currently 0 (1 standard drink = 0.6 oz pur e alcohol) EH IP Custom IPV Answer Date Recorded Do you feel UNSAFE in any of your personal relationships with your family members or any other acquaintances? No 2022 Comments No Sex and Gender Information Value Date Recorded Sex Assigned at Not on file Legal Sex Female 8:26 AM CDT Gender Identity Not on file Sexual Orientation Not on file Obstetrics History Last Filed Vital Signs Vital Sign Reading Time Taken Comments Blood Pressure 132/70 03/13/2023 10:42 AM CDT Pulse 81 03/13/2023 10:42 AM CDT Temperature 36.5 ??C (97.7 ??F) 03/13/2023 10:42 AM C DT Respiratory Rate 16 03/13/2023 10:42 AM CDT Oxygen Saturation 98% 03/13/2023 10:42 AM CDT Inhaled Oxygen Concentration - - Weight 50.3 kg (111 lb) 03/04/2023 10:59 AM CDT Height 154.9 cm (5' 1) 03/04/2023 10:59 AM CDT Body Mass Index 20.97 03/04/2023 10:59 AM CDT Plan of Treatment Not on file Medical Devices Implanted Type Area Sales Manager Prearranged Funerals Device Identifier Shelf Expiration Date Model / Serial / Lot Implant Intraocular Technis Simplicity - [id number] Implanted:Qty: 1 on 03/13/2023 by Omer Rubio MD at [facility] Right: Eye 10/11/2025 DCB00 / [id number] / NA Implant Intraocular Technis Simplicity - [id number] Implanted:Qty: 1 on 03/13/2023 by Omer Rubio MD at [facility] Left: Eye 09/29/2023 DCB00 / [id number] / NA Insurance MEDICA ACCESSABILITY MEDICARE PART A & B Advance Directives For more information, please contact: [phone] * Full Code (Latest Code Status on File) Date Activated Date Inactivated Comments 03/13/2023 5:04 AM 04/04/2023 4:56 PM Care Teams Program Director Relationship Specialty Start Date End Date Angela Naranjo PA-C [address] [place] [address] PCP - General Physician Pulp Press Tender 03/13/23
--- OUTSIDE RECORDS SUMMARY | 2024-03-27 09:26 | XMS_ITS | Encounter Summary ---
Author Organization [place] Address [address] [place] [address] Care Team Providers Care Soccer Player Name Role Phone Angela Naranjo PA-C Primary Care Provider [phone] Yamile Crabtree MD Unavailable Yamile Crabtree MD Unavailable [phone] Encounter Details Date Type Department Care Team (Late st Contact Info) Description 11/26/2023 [facility] Medical Advice [facility] [address] [phone] Kiara Rubio, [address] [address] Social History Tobacco Use Types Packs/Day Years Used Date Smoking Tobacco: Never Smokeless Tobacco: Never Alcohol Use Standard Drinks/Week Comments Not Asked 0 (1 standard drink = 0.6 oz pur e alcohol) PHQ-2 Answer Date Recorded PHQ-2 Score 4 01/24/2018 Adolescent Education Answer Date Record ed Getting School Help Needed Not on file 02/20 Comments No Sex and Gender Information Value Date Recorded Sex Assigned at Female 06/20/2023 7:53 PM LAW WRITER Legal Sex Female 3:17 AM LAW WRITER Gender Identity Female 06/20/2023 7:53 PM LAW WRITER Sexual Orientation Straight 06/20/2023 7: 53 PM LAW WRITER documented as of this encounter Plan of Treatment Upcoming Encounters Date Type Department Care Team (Late st Contact Info) Description 05/15/2024 8:45 AM LAW WRITER Office Visit [facility] [address] [place] [address] Meir Bethea MD [address] [facility] [address] [place], [place] [address] documented as of this encounter Visit Diagnoses Not on filedocumented in this encounter Additional Health Concerns Assessment Noted Time PHQ-9 Depression Total Score: 9 01/26/20 18 7:21 AM CDT documented as of this encounter Care Teams Soccer Player Relationship Specialty Start Date End Date Angela Naranjo PA-C PCP - General 12/26/21 Yamile Crabtree MD [id number] [id number] Pediatrics 10/22/22 Yamile Crabtree MD [address] [place] [address] Assigned Pediatric Specialist Provider 07/12/23 documented as of this encounter
--- OUTSIDE RECORDS SUMMARY | 2024-03-27 09:26 | XMS_ITS | Encounter Summary ---
Author Organization [place] Address [facility] [place] [address] Care Team Providers Care Nurses Medical Assistants Phlebotomists Name Role Phone Angela Naranjo PA-C Primary Care Provider [phone] Yamile Crabtree MD Unavailable Yamile Crabtree MD Unavailable Reason for Visit * Reason Onset Date Comments Appointment 10/17/2022 Encounter Details Date Type Department Care Team (Late st Contact Info) Description 10/17/[address] [facility] [address] [facility] [address],[place] [address] Yamile Crabtree MD [address] [facility], [facility] [address] [place] [address] Appointment Social History Tobacco Use Types Packs/Day Years Used Date Smoking Tobacco: Never Smokeless Tobacco: Never Alcohol Use Standard Drinks/Week Comments Not Asked 0 (1 standard drink = 0.6 oz pur e alcohol) PHQ-2 Answer Date Recorded PHQ-2 Score 4 01/24/2018 Comments No Sex and Gender Information Value Date Recorded Sex Assigned at Female 06/20/2023 7:53 PM TRUSS PULLER HELPER Legal Sex Female 3:17 AM TRUSS PULLER HELPER Gender Identity Female 06/20/2023 7:53 PM TRUSS PULLER HELPER Sexual Orientation Straight 06/20/2023 7: 53 PM TRUSS PULLER HELPER documented as of this encounter Miscellaneous Notes * Telephone Encounter - Bradley Nelson - 10/17/2022 11:17 AM CDT Left voicemail to reschedule genetics appointment on 12/[address] Crabtree due to provider being outon leave. documented in this encounter Plan of Treatment Upcoming Encounters Date Type Department Care Team (Late st Contact Info) Description 05/15/2024 8:45 AM TRUSS PULLER HELPER Office Visit [facility] [address] [phone] Meir Bethea MD [address] [facility] [place], [place] [address] documented as of this encounter Visit Diagnoses Not on filedocumented in this encounter Additional Health Concerns Assessment Noted Time PHQ-9 Depression Total Score: 9 01/26/20 18 7:21 AM CDT documented as of this encounter Care Teams Nurses Medical Assistants Phlebotomists Relationship Specialty Start Date End Date Angela Naranjo PA-C PCP - General 12/26/21 Yamile Crabtree MD [address] [place] [address] Pediatrics 10/22/22 Yamile Crabtree MD [address] [address] [place] [address] Assigned Pediatric Specialist Provider 07/12/23 documented as of this encounter
--- OUTSIDE RECORDS SUMMARY | 2024-03-27 09:26 | XMS_ITS | Clinical Summary ---
Author Organization [place] Address [address] [place] [address] Care Team Providers Care Video Game Script Writer Name Role Phone Angela Naranjo PA-C Primary Care Provider [phone] Yamile Crabtree MD Unavailable [phone] Yamile Crabtree MD Unavailable Allergies Active Allergy Reactions Criticality Noted Date Comments Sulfa Antibiotics 07/10/2010 Medications Cholecalciferol (VITAMIN D) 1000 UNIT capsule Take 1 capsule by mouth daily. 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 [address] [place] [phone] Meir Bethea MD Refill Request (losartan (COZAAR) 25 MG tablet) 12/30/2023 MyC Medical Advice [facility] [address] [address] Milla Hobbs RN Clinic Care Coordination - Follow-up from Last 3 Months Immunizations Name Administration Dates Next Due TDAP Vaccine (Boostrix) 05/20/2010 Social History Tobacco Use Types Packs/Day Years Used Date Smoking Tobacco: Never Smokeless Tobacco: Never Tobacco Cessation:Counseling Given: Not Answered Alcohol Use Standard Drinks/Week Comments Not Asked 0 (1 standard drink = 0.6 oz pur e alcohol) PHQ-2 Answer Date Recorded PHQ-2 Score 4 01/24/2018 Adolescent Education Answer Date Record ed Getting School Help Needed Not on file 02/20 Comments No Sex and Gender Information Value Date Recorded Sex Assigned at Female 06/20/2023 7:53 PM FELLED SEAM OPERATOR CHAINSTITCH Legal Sex Female 3:17 AM FELLED SEAM OPERATOR CHAINSTITCH Gender Identity Female 06/20/2023 7:53 PM FELLED SEAM OPERATOR CHAINSTITCH Sexual Orientation Straight 06/20/2023 7: 53 PM FELLED SEAM OPERATOR CHAINSTITCH Last Filed Vital Signs Vital Sign Reading Time Taken Comments Blood Pressure 122/78 11/26/2023 10:05 AM CDT Pulse 80 11/26/2023 10:05 AM CDT Temperature - - Respiratory Rate - - Oxygen Saturation 97% 11/26/2023 10:05 AM CDT Inhaled Oxygen Concentration - - Weight 66.7 kg (147 lb) 11/26/2023 10:05 AM CDT per pt Height 154.9 cm (5' 0.98) 06/24/2023 12:[address] Body Mass Index 27.79 06/24/2023 12:17 PM FELLED SEAM OPERATOR CHAINSTITCH Plan of Treatment Upcoming Encounters Date Type Department Care Team (Late st Contact Info) Description 05/15/2024 8:45 AM FELLED SEAM OPERATOR CHAINSTITCH Office Visit [facility] [address] [address] Meir Bethea MD [address] [place] [id number] Health Maintenance Due Date Last Done Comments ADVANCE CARE PLANNING 1965 ANNUAL REVIEW OF HM ORDERS 1965 CT COLONOGRAPHY 1965 DEPRESSION ACTION PLAN 1966 FIT 1965 FLEX SIG 1965 GLUCOSE 1966 sDNA (Cologuard) 1965 Pneumococcal Vaccine: Pediatrics (0 to 5 Years) and At-Risk Patients (6 to 64 Years) (1 of 2 - PCV) 1972 HIV SCREENING 1981 HEPATITIS C SCREENING 1984 MEDICARE ANNUAL WELLNESS VISIT 1984 HEPATITIS B IMMUNIZATION (1 of 3 - 19+ 3-dose series) 1985 LIPID 2006 ZOSTER IMMUNIZATION (1 of 2) 2016 PHQ-9 07/24/2018 01/24/2018 MAMMO SCREENING 10/24/2019 10/23/2017 COLONOSCOPY 02/27/2031 02/27/2021, 12/06/2017 COLORECTAL CANCER SCREENING 02/27/2031 DTAP/TDAP/TD IMMUNIZATION (3 - Td or Tdap) 03/01/2032 03/01/2022, 05/20/2010 RSV VACCINE (1 - 1-dose 75+ series) 2041 COVID-19 Vaccine Completed 03/16/2024, , 03/01/2022, Additional history exists INFLUENZA VACCINE Completed 03/16/2024, , 02/21/2022, Additional history exists HPV IMMUNIZATION Aged Out No longer e ligible based on patient's age to complete this topic MENINGITIS IMMUNIZATION Aged Out No l onger eligible based on patient's age to complete this topic PAP Discontinued RSV MONOCLONAL ANTIBODY Aged Out No l onger eligible based on patient's age to complete this topic Procedures Procedure Name Priority Date/Time Associated Diagnosis Comments BASIC METABOLIC PANEL Routine 03/16/2024 10:[address] CHEST ABDOMEN W CONTRAST Routine 01/31/2024 11:50 AM CDT Abnormal genetic test 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) Abnormal findings on diagnostic imaging of other specified body structures Adult congenital heart disease HIM COLONOSCOPY SCAN Routine 12/06/2017 MAMMOGRAM - HIM SCAN Routine 10/23/2017 from Last 3 Months or Most Recently Relevant to Health Maintenance Results * Basic metabolic panel (03/16/2024 10:59 AM CDT) Glucose (External) 89 65 - 99 mg/dL NON-INTERFACED (ONBASE SCANS) Urea Nitrogen (External) 14 7 - 25 mg/dL NON-INTERFACED (ONBASE SCANS) Creatinine (External) 0.94 0.50 - 1.03 mg/dL NON-INTERFACED (ONBASE SCANS) GFR Estimated (External) 71 > or = 60 mL/min/1.7 3m2 NON-INTERFACED (ONBASE SCANS) Sodium (External) 143 135 - 146 mmol/L NON-INTERFACED (ONBASE SCANS) Potassium (External) 4.3 3.5 - 5.3 mmol/L NON-INTERFACED (ONBASE SCANS) Chloride (External) 108 98 - 110 mmol/L NON-INTERFACED (ONBASE SCANS) CO2 (External) 26 20 - 32 mmol/L NON-INTERFACED (ONBASE SCANS) Calcium (External) 9.2 8.6 - 10.4 mg/dL NON-INTERFACED (ONBASE SCANS) Blood BLOOD SPECIMEN / Unknown 03/16/2024 10:59 AM CDT Narrative VIRAJ PFT - 03/17/2024 2:18 PM CDT Verified by Mona Montana on 03/17/2024. us Meir Bethea MD LAB - BLOOD ORDERABLES Edite d Result - Final VIRAJ PFT NON-INTERFACED (ONBASE SCANS) * CT Chest Abdomen w Contrast (01/31/2024 11:50 AM CDT) Anatomical Region Laterality Modality Abdomen/Pelvis, SUBRAD CT GORDO DY, UMP CT ABDOMEN PELVIS, Chest, RAD CT Computed Tomography Impressions 02/02/2024 5:31 PM CDT IMPRESSION: 1. ??Soft tissue density in the left breast is indeterminate. Recommend mammography and ultrasound for further evaluation. 2. ??No acute or suspicious abnormalities in the abdomen. SHARON OJEDA DO Narrative 02/02/2024 5:31 PM CDT EXAMINATION: CT CHEST ABDOMEN W CONTRAST, 01/31/2024 11:50 AM TECHNIQUE: Helical CT images from the thoracic inlet through the iliac crests were obtained with intravenous contrast. 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 No evidence of central pulmonary embolism. No bulky lymphadenopathy. ??Esophagus appears normal. Lungs/pleura: The central tracheobronchial tree is patent. ??No focal mass or consolidation. Scattered small pulmonary nodules, for example in the right upper lobe on series 4 image 42 measuring 2 mm. Subpleural nodularity in the posterior lung bases, likely atelectasis. Streaky right lateral base and lingular opacity is likely also atelectasis. No suspicious nodules. No pneumothorax or pleural effusion. Chest wall/axilla: No bulky lymphadenopathy. Soft tissue density in the left breast measuring 2.6 x 1.0 cm on series 3 image 137. Abdomen and Pelvis: Liver: Unremarkable. No suspicious masses. No hepatic steatosis. Gallbladder/biliary tree: No gallstones. No biliary dilatation. Spleen: Unremarkable. Pancreas: Unremarkable. No mass or ductal dilatation. Adrenal glands: Unremarkable. Kidneys: Bilateral renal cysts and additional hypodensities which are too small to fully characterize. No hydronephrosis. Bowel: Unremarkable. No obstruction. Retroperitoneum: Vasculature is grossly unremarkable. No aortic aneurysm. ??No bulky lymphadenopathy. Bones: Unremarkable. No suspicious lesions. Soft Tissues: Unremarkable. Procedure Note Sharon Ojeda MD - 02/02/2024 EXAMINATION: CT CHEST ABDOMEN W CONTRAST, 01/31/2024 11:50 AM TECHNIQUE: Helical CT images from the thoracic inlet through the iliac crests were obtained with intravenous contrast. 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 No evidence of central pulmonary embolism. No bulky lymphadenopathy. Esophagus appears normal. Lungs/pleura: The central tracheobronchial tree is patent. No focal mass or consolidation. Scattered small pulmonary nodules, for example in the right upper lobe on series 4 image 42 measuring 2 mm. Subpleural nodularity in the posterior lung bases, likely atelectasis. Streaky right lateral base and lingular opacity is likely also atelectasis. No suspicious nodules. No pneumothorax or pleural effusion. Chest wall/axilla: No bulky lymphadenopathy. Soft tissue density in the left breast measuring 2.6 x 1.0 cm on series 3 image 137. Abdomen and Pelvis: Liver: Unremarkable. No suspicious masses. No hepatic steatosis. Gallbladder/biliary tree: No gallstones. No biliary dilatation. Spleen: Unremarkable. Pancreas: Unremarkable. No mass or ductal dilatation. Adrenal glands: Unremarkable. Kidneys: Bilateral renal cysts and additional hypodensities which are too small to fully characterize. No hydronephrosis. Bowel: Unremarkable. No obstruction. Retroperitoneum: Vasculature is grossly unremarkable. No aortic aneurysm. No bulky lymphadenopathy. Bones: Unremarkable. No suspicious lesions. Soft Tissues: Unremarkable. IMPRESSION: 1. Soft tissue density in the left breast is indeterminate. Recommend mammography and ultrasound for further evaluation. 2. No acute or suspicious abnormalities in the abdomen. SHARON OJEDA DO us Meir Bethea MD IMG CT ORDERABLES Final Resu lt * - HIM Screen Colonoscopy Scan (12/06/2017) Narrative aKndace Melendrez, [facility] - 12/06/2017 Result Hoop Flaring Machine Operator Helper Lexie Campos DO - 12/06/2017 ??9:50 AM CDT Patient Name: Lizzie Mckeon ?Procedure Date: 12/06/2017 ? Gender: Female ? Date of : 1965 Admit Type: Ambulatory ? Procedure: ?Colonoscopy Proceduralist: ?Lexie Campos MD [facility] Indications/Pre-Op Diagnosis: Screening for colorectal malignant neoplasm, ?This is the patient's first colonoscopy Medications: ?Propofol per Anesthesia Procedure Description: ? The patient had risks, benefits and alternatives explained to and gave ? informed consent. The patient had a stable cardiopulmonary status and ? judged an adequate candidate for conscious sedation. ? The colonoscope was passed through the anus and advanced to the cecum, ? identified by appendiceal orifice and ileocecal valve. The colonoscopy ? was performed without difficulty. The patient tolerated the procedure ? well. The quality of the bowel preparation was good. The ileocecal ? valve, appendiceal orifice, and rectum were photographed. Complications: ?No immediate complications. Estimated Blood Loss & Specimen: ? Estimated blood loss was minimal. ? Specimen collected - Yes and sent to Laboratory Findings: ? A 5 mm polyp was found in the hepatic flexure. The polyp was ? semi-pedunculated. The polyp was removed with a hot snare. Resection and ? retrieval were complete. Verification of patient identification for the ? specimen was done. Estimated blood loss was minimal. ? Non-bleeding internal hemorrhoids were found during retroflexion. The ? hemorrhoids were Grade III (internal hemorrhoids that prolapse but ? require manual reduction). Impressions/Post-Op Diagnosis: ? - One 5 mm polyp at the hepatic flexure, removed with a hot snare. ? Resected and retrieved. ? - Non-bleeding internal hemorrhoids. Recommendation: ? - Discharge patient to home. ? - Patient has a contact number available for emergencies. The signs and ? symptoms of potential delayed complications were discussed with the ? patient. Return to normal activities tomorrow. Written discharge ? instructions were provided to the patient. ? - High fiber diet. ? - Continue present medications. ? - Await pathology results. ? - Repeat colonoscopy in 5-10 years for surveillance based on pathology ? results. Lexie Campos MD 12/06/2017 9:50:16 AM This report has been signed electronically. Note Initiated On: 12/06/2017 9:12 AM us Provider Outside PROCEDURES Final Result * Mammogram - HIM Scan (10/23/2017) Anatomical Region Laterality Modality Other Narrative 10/23/2017 Result Impression ?There is no radiographic evidence for malignancy.?Recommend annual mammograms. A lay language report of this examination will be provided to the patient. MAMMOGRAM ASSESSMENT:?ACR 1 Negative Result Narrative XR MAMMO BILAT SCREENING [[id number]] CLINICAL HISTORY:?This is an asymptomatic 52 y.o. patient. INDICATION FOR EXAM: Mammogram Screening. TECHNIQUE: CC & MLO views were obtained.?This digital study was evaluated with the assistance of Computer-Aided Detection. COMPARISON FILM: Yes 03/01/16 [facility] DIAGNOSTIC IMAGING FINDINGS:?Mammographically, the breast tissue is heterogeneously dense, which could obscure detection of small masses. There are no dominant masses, suspicious micro calcifications or areas of architectural distortion. us Provider Outside IMG MAMMOGRAPHY ORDERABLES Alix huynh Result from Last 3 Months or Most Recently Relevant to Health Maintenance Insurance [place]ICARE [place] Member Subscriber Plan / Payer ( fective 2012-Present) Name:Lizzie Mckeon Member ID:[id number] Relation to Subscriber:Self Name:Lizzie Mckeon Subscriber ID:[id number] Payer ID:[id number] Group ID:Not on file Type:Medicare Address: ATTN CLAIMS [place] [phone] [employer] [place] Care Teams Video Game Script Writer Relationship Specialty Start Date End Date Angela Naranjo PA-C PCP - General 12/26/21 Yamile Crabtree MD [facility] [id number] Pediatrics 10/22/22 Yamile Crabtree MD [address], [address] [id number] Assigned Pediatric Specialist Provider 07/12/23
--- OUTSIDE RECORDS SUMMARY | 2024-03-27 09:26 | XMS_ITS | Encounter Summary ---
Author Organization [place] Address [address] [facility] [place] [address] Care Team Providers Care Course Developer Name Role Phone Angela Naranjo PA-C Primary Care Provider [phone] Yamile Crabtree MD Unavailable [phone] Yamile Crabtree MD Unavailable Reason for Visit * Reason Onset Date Comments Genetic Counseling 03/26/2024 Encounter Details Date Type Department Care Team (Late st Contact Info) Description 03/26/2024 Telephone [facility] [place] [address] [facility] [address] [place] [address] Renetta Whitten GC [address] [address] [address] [place] [address] Genetic Counseling Social History Tobacco Use Types Packs/Day Years [...] Sex Assigned at Female 06/20/2023 7:53 PM PEARL HAND Legal Sex Female 3:17 AM PEARL HAND Gender Identity Female 06/20/2023 7:53 PM PEARL HAND Sexual Orientation Straight 06/20/2023 7: 53 PM PEARL HAND documented as of this encounter Miscellaneous Notes * Telephone Encounter - Renetta Whitten GC - 03/26/2024 3:14 PM CST 03/26/24 I met with Nydia Heredia's daughter, yesterday for genetic counseling due to family history of Loeys Marleny Syndrome and ataxia in her mother. Giovanna did not have records, but signed a consent to communicate with her mother. She requested I reach out to her mother for records. She adry has limited communication with her mother. Yesterday I called Nydia Mckeon, Giovanna's mother, at the request of Giovanna, and left a voicemail requesting records to coordinate genetic testing for Giovanna. Nydia left me a return voicemail stating that she had genetic testing with Dr. Bethea for ataxia and was incidentally diagnosed with Loeys Marleny Syndrome. Nydia stated that she was told the genetic etiology for the ataxia was rare and unlikely to be passed on to her children. She shared that she was told her children should be tested for Loeys Marleny Syndrome. Nydia stated that she would sign any release of records to help coordinate Giovanna's care. I called Nydia back and spoke to her. She gave me verbal permission to share information to coordinate Giovanna's care. A consent to communicate form was sent to her email for her tosign as well. She gave me verbal permission to access her [place] to get genetic test results to coordinate testing for Giovanna. Nydia was tearful when we discussed this and shared feelings of guilt about the possibility of passing on the variant to her children or grandchildren. Time was spent providing psychosocial counseling. We discussed that while guilt is a normal feeling, there is nothing she did or didn't do wrong to cause this condition. We discussed the importance of surveillance and management. No further questions at this time. Renetta Whitten MS, [facility] Licensed Genetic Counselor [facility] Pager: [phone] Office: [phone] L HAND documented in this encounter Plan of Treatment Upcoming Encounters Date Type Department Care Team (Late st Contact Info) Description 05/15/2024 8:45 AM PEARL HAND Office Visit [facility] [place] [id number] [place] [phone] Meir Bethea MD [address] [facility] [address] [place], [place] [address] documented as of this encounter Visit Diagnoses Not on filedocumented in this encounter Additional Health Concerns Assessment Noted Time PHQ-9 Depression Total Score: 9 01/26/20 18 7:21 AM CDT documented as of this encounter Care Teams Course Developer Relationship Specialty Start Date End Date Angela Naranjo PA-C PCP - General 12/26/21 Yamile Crabtree MD [facility] [address] [address] Pediatrics 10/22/22 Yamile Crabtree MD [address] [address] [facility] [address] [place] [address] Assigned Pediatric Specialist Provider 07/12/23 documented as of this encounter
--- OUTSIDE RECORDS SUMMARY | 2024-03-27 09:26 | XMS_ITS | Encounter Summary ---
Author Organization [facility] Address [address] [place] [address]. [place] [address] Care Team Providers Care Optimization Consultant Name Role Phone Angela Naranjo PA-C Primary Care Provider [phone] Yamile Crabtree MD Unavailable [phone] Yamile Crabtree MD Unavailable [phone] Encounter Details Date Type Department Care Team (Late st Contact Info) Description 06/25/2023 [facility] [place] [facility] [address] [place] [address] Clinic [address],[place] [phone] Rachana Rowe Social History Tobacco Use Types Packs/Day Years [...] Sex Assigned at Female 06/20/2023 7:53 PM INSTRUCTIONAL CONSULTANT Legal Sex Female 3:17 AM INSTRUCTIONAL CONSULTANT Gender Identity Female 06/20/2023 7:53 PM INSTRUCTIONAL CONSULTANT Sexual Orientation Straight 06/20/2023 7: 53 PM INSTRUCTIONAL CONSULTANT documented as of this encounter Miscellaneous Notes * Telephone Encounter - Meir Naranjo - 06/25/2023 3:01 PM CST Nydia called back, would like 07/25 at 8AM phone visit with Kiara. Please call patient back. RUCTIONAL CONSULTANT documented in this encounter Plan of Treatment Upcoming Encounters Date Type Department Care Team (Late st Contact Info) Description 05/15/2024 8:45 AM INSTRUCTIONAL CONSULTANT Office Visit [facility] [address] [place] [phone] Meir Bethea MD [address] [facility] [place], [place] [address] documented as of this encounter Visit Diagnoses Not on filedocumented in this encounter Additional Health Concerns Assessment Noted Time PHQ-9 Depression Total Score: 9 01/26/20 18 7:21 AM CDT documented as of this encounter Care Teams Optimization Consultant Relationship Specialty Start Date End Date Angela Naranjo PA-C PCP - General 12/26/21 Yamile Crabtree MD [address] [place] [address] Pediatrics 10/22/22 Yamile Crabtree MD [address] [place] [address] Assigned Pediatric Specialist Provider 07/12/23 documented as of this encounter
--- OUTSIDE RECORDS SUMMARY | 2024-03-27 09:26 | XMS_ITS | Encounter Summary ---
Author Organization [facility] Address [address] [place] [address]. [place] [address] Care Team Providers Care Fur Puller Name Role Phone Angela Naranjo PA-C Primary Care Provider Yamile Crabtree MD Unavailable [phone] Yamlie Crabtree MD Unavailable [phone] Encounter Details Date Type Department Care Team (Late st Contact Info) Description 03/16/2024 External Order Results [facility] [address] [place] [address] Outside, Provider Social History Tobacco Use Types Packs/Day Years [...] Sex Assigned at Female 06/20/2023 7:53 PM COLLAR STARCHER Legal Sex Female 3:17 AM COLLAR STARCHER Gender Identity Female 06/20/2023 7:53 PM COLLAR STARCHER Sexual Orientation Straight 06/20/2023 7: 53 PM COLLAR STARCHER documented as of this encounter Plan of Treatment Upcoming Encounters Date Type Department Care Team (Late st Contact Info) Description 05/15/2024 8:45 AM COLLAR STARCHER Office Visit [facility] [address] [place] [place] [phone] Meir Bethea MD [facility] [address] [address] documented as of this encounter Procedures Procedure Name Priority Date/Time Associated Diagnosis Comments BASIC METABOLIC PANEL Routine 03/16/2024 10:59 AM CDT documented in this encounter Results * Basic metabolic panel (03/16/2024 10:59 [...] - Final VIRAJ PFT NON-INTERFACED (ONBASE SCANS) documented in this encounter Visit Diagnoses Not on filedocumented in this encounter Additional Health Concerns Assessment Noted Time PHQ-9 Depression Total Score: 9 01/26/20 18 7:21 AM CDT documented as of this encounter Care Teams Fur Puller Relationship Specialty Start Date End Date Angela Naranjo PA-C PCP - General 12/26/21 Yamile Crabtree MD [address] [place] [id number] Pediatrics 10/22/22 Yamile Crabtree MD [address] [place] [id number] Assigned Pediatric Specialist Provider 07/12/23 documented as of this encounter
--- OUTSIDE RECORDS SUMMARY | 2024-03-27 09:26 | XMS_ITS | Encounter Summary ---
Author Organization [facility] Address [address] [place] [address] Care Team Providers Care Openstack Developer Name Role Phone Angela Naranjo PA-C Primary Care Provider [phone] Yamile Crabtree MD Unavailable [phone] Yamile Crabtree MD Unavailable [phone] Reason for Visit * Reason Onset Date Comments Clinic Care Coordination - Follow-up 01/22/2024 Encounter Details Date Type Department Care Team (Latest Contact Info) Description 01/22/2024 [facility] Medical Advice [facility] Heart [address] [address] Milla Hobbs RN Clinic Care Coordination - Follow-up Social History Tobacco Use Types Packs/Day Years [...] Sex Assigned at Female 06/20/2023 7:53 PM POWDERER Legal Sex Female 3:17 AM POWDERER Gender Identity Female 06/20/2023 7:53 PM POWDERER Sexual Orientation Straight 06/20/2023 7: 53 PM POWDERER documented as of this encounter Miscellaneous Notes * Telephone Encounter - Milla Hobbs RN - 01/22/2024 11:40 AM CDT Date: 01/22/2024 Time of Call: 11:41 AM Diagnosis: EDS [ TORB ] Ordering provider: Meir Bethea MD Order: increase losartan to 25 mg daily Order received by: Milla Hobbs RN Follow-up/additional notes: sent to pharmacy and updated pt * Telephone Encounter - Brenda Etienne V - 01/22/2024 11:31 AM CDT Patient left voicemail stating she missed a call regarding her refill. She said she is available today for a phone call. 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
--- OUTSIDE RECORDS SUMMARY | 2024-03-27 09:26 | XMS_ITS | Encounter Summary ---
Author Organization Agency Address [address] [place] [address]. [place] [address] Care Team Providers Care First Aid Officer Name Role Phone Angela Naranjo PA-C Primary Care Provider [phone] Yamile Crabtree MD Unavailable [phone] Yamile Crabtree MD Unavailable [phone] Reason for Visit * Reason Onset Date Comments Refill Request 01/21/2024 losartan (COZAAR ) 25 MG tablet Encounter Details Date Type Department Care Team (Late st Contact Info) Description 01/21/2024 Refill [facility] [place] [address] [facility] [address] [place] [address] Meir Bethea MD [address] [place] [address] Refill Request (losartan (COZAAR) 25 MG tablet) Social History Tobacco Use Types Packs/Day Years [...] Sex Assigned at Female 06/20/2023 7:53 PM FIELD OPERATIONS SUPERVISOR Legal Sex Female 3:17 AM FIELD OPERATIONS SUPERVISOR Gender Identity Female 06/20/2023 7:53 PM FIELD OPERATIONS SUPERVISOR Sexual Orientation Straight 06/20/2023 7: 53 PM FIELD OPERATIONS SUPERVISOR documented as of this encounter Miscellaneous Notes * Telephone Encounter - Yoko Skinner RN - 01/21/2024 4:21 PM CDT Medication Requested: losartan (COZAAR) 25 MG tablet 45 tablet 3 11/26/2023 -- No Sig - Route: Take 0.5 tablets (12.5 mg) by mouth daily - Oral Last Office Visit : 11/26/2023 [facility] Office visit: 05/15/2024 8:45 AM (30 min) Ca Arrive by: 8:30 AM RETURN [facility] Rfl Status: Pending Review CV ([facility]) Meir Bethea MD Refill decision: Refill pended and routed to the provider for review/determination due to the following criteria not met: Last script shows refills should be on file. Pharmacy will not refill medication for patient, she has been taking 25mg daily rather than 12.5mg as ordered. Please address, new script with blank specified dose sent. Encounter details: From Pt Calls: Date medication is needed: OUT, Pt is taking 1 tablet and not half. Pharmacy will not refill. Thank you Pass/Fail Protocol Criteria: BP Readings from Last 3 Encounters: 11/26/23 122/78 06/24/23 118/82 01/24/18 100/54 Last Comprehensive Metabolic Panel: Lab Results Component Value Date BUN 13 01/11/2006 CR 1.0 11/26/2023 GFRESTIMATED >60 11/26/2023 * Telephone Encounter - Silvana Edwards - 01/21/2024 4:12 PM CDT [facility] Call Center Phone Message May a detailed message be left on voicemail: yes Reason for Call: Medication Refill Request Has the patient contacted the pharmacy for the refill? Yes Name of medication being requested: losartan (COZAAR) 25 MG tablet Provider who prescribed the medication: [id number] [place], [place] - [address] [facility] [address] Date medication is needed: OUT, Pt is taking 1 tablet and not half. Pharmacy will not refill. Thankyou Action Taken: Other: cardiology Travel Screening: Not Applicable Thank you! 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 Abnormal findings on diagnostic imaging of other specified body structures Adult congenital heart disease Unspecified congenital anomaly of heart documented in this encounter Additional Health Concerns Assessment Noted Time PHQ-9 Depression Total Score: 9 01/26/20 18 7:21 AM CDT documented as of this encounter Care Teams First Aid Officer Relationship Specialty Start Date End Date Angela Naranjo PA-C PCP - General 12/26/21 Yamile Crabtree MD [address] [place], [place] [address] Pediatrics 10/22/22 Yamile Crabtree MD [address] [place] [address] Assigned Pediatric Specialist Provider 07/12/23 documented as of this encounter
--- OUTSIDE RECORDS SUMMARY | 2024-03-27 09:26 | XMS_ITS | Encounter Summary ---
Author Organization [facility] Address [address] [place] [address] Care Team Providers Care Molded Goods Inspector Trimmer Name Role Phone Angela Naranjo PA-C Primary Care Provider [phone] Yamile Crabtree MD Unavailable Yamile Crabtree MD Unavailable Reason for Visit * Reason Onset Date Comments Appointment 09/10/2022 Erroneous encounter-disregard 09/10/2022 Encounter Details Date Type Department Care Team (Late st Contact Info) Description 09/10/2022 Telephone [facility] [address] [facility] [address],[place] [address] Yamile Crabtree MD [address] [facility] [address] [place], [place] [address] Appointment; Erroneous encounter-disregard Social History Tobacco Use Types Packs/Day Years Used Date Smoking Tobacco: Never Smokeless Tobacco: Never Alcohol Use Standard Drinks/Week Comments Not Asked 0 (1 standard drink = 0.6 oz pur e alcohol) PHQ-2 Answer Date Recorded PHQ-2 Score 4 01/24/2018 Comments No Sex and Gender Information Value Date Recorded Sex Assigned at Female 06/20/2023 7:53 PM CLINICAL DATA PROGRAMMER Legal Sex Female 3:17 AM CLINICAL DATA PROGRAMMER Gender Identity Female 06/20/2023 7:53 PM CLINICAL DATA PROGRAMMER Sexual Orientation Straight 06/20/2023 7: 53 PM CLINICAL DATA PROGRAMMER documented as of this encounter Miscellaneous Notes * Telephone Encounter - Angela Mcmanus - 09/10/2022 8:22 AM CDT documented in this encounter Plan of Treatment Upcoming Encounters Date Type Department Care Team (Late st Contact Info) Description 05/15/2024 8:45 AM CLINICAL DATA PROGRAMMER Office Visit [facility] Heart [address] [phone] Meir Bethea MD 2450 [facility] [place], [place] [address] documented as of this encounter Visit Diagnoses Not on filedocumented in this encounter Additional Health Concerns Assessment Noted Time PHQ-9 Depression Total Score: 9 01/26/20 18 7:21 AM CDT documented as of this encounter Care Teams Molded Goods Inspector Trimmer Relationship Specialty Start Date End Date Angela Naranjo PA-C PCP - General 12/26/21 Yamile Crabtree MD [address] [address] Pediatrics 10/22/22 Yamile Crabtree MD [address] [place], [place] [address] Assigned Pediatric Specialist Provider 07/12/23 documented as of this encounter
--- OUTSIDE RECORDS SUMMARY | 2024-03-27 09:26 | XMS_ITS | Encounter Summary ---
Author Organization [facility] Address [address] [place] [address]. [place] [address] Care Team Providers Care Cake Wrapper Name Role Phone Angela Naranjo PA-C Primary Care Provider [phone] Yamile Crabtree MD Unavailable [phone] Yamile Crabtree MD Unavailable [phone] Reason for Visit * Diagnostic Imaging CT Scan (Routine) - Closed Specialty Diagnoses / Procedures Referred By Magdi eng Referred To Contact Radiology. 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) Abnormal findings on diagnostic imaging of other specified body structures Adult congenital heart disease Procedures CT Chest Abdomen w Contrast CT Chest abdomen w & wo contrast Meir Bethea MD [address] [place] [address] Phone: tel: fax: Referral ID Status Reason Start Date Expiration Date Visits Re quested Visits Authorized [id number] Closed 11/26/2023 11/25/2024 1 1 Encounter Details Date Type Department Care Team (Late st Contact Info) Description 01/31/2024 12:00 PM CDT Ancillary Procedure [facility] CT Clinic [address] 1st [place] [address] Meir Bethea MD [address] [place] [address] Abnormal genetic test; Loeys-Marleny syndrome; 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); Abnormal findings on diagnostic imaging of other specified body structures; Adult congenital heart disease Social History Tobacco Use Types Packs/Day Years [...] Sex Assigned at Female 06/20/2023 7:53 PM MEDIA RELATIONS INTERN Legal Sex Female 3:17 AM MEDIA RELATIONS INTERN Gender Identity Female 06/20/2023 7:53 PM MEDIA RELATIONS INTERN Sexual Orientation Straight 06/20/2023 7: 53 PM MEDIA RELATIONS INTERN documented as of this encounter Plan of Treatment Upcoming Encounters Date Type Department Care Team (Late st Contact Info) Description 05/15/2024 8:45 AM MEDIA RELATIONS INTERN Office Visit [address] [address] Meir Bethea MD [address] [place] [address] documented as of this encounter Procedures Procedure Name Priority Date/Time Associated Diagnosis Comments CT CHEST ABDOMEN W CONTRAST Routine 01/31/2024 11:50 AM CDT Abnormal genetic test 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 Abnormal findings on diagnostic imaging of other specified body structures Adult congenital heart disease Unspecified congenital anomaly of heart documented in this encounter Administered Medications Inactive Administered Medications - up to 3 most recent administrations Medication Order MAR Action Action Date Dose Rate Site iopamidol (ISOVUE-370) solution 81 mL 81 mL, Intravenous, ONCE, On Sat01/31/24 at 1200, For 1 dose $Given 01/31/2024 11:44 AM CDT 81 mLs sodium chloride 0.9 % bag [address] scan flush use As instructed, 100 mL, ONCE, On Sat01/31/24 at 1200, For 1 dose, This entry is for use by Radiology to intermittently used as a flush in patients receiving a CT scan. $Given 01/31/2024 11:44 AM CDT 100 mLs documented in this encounter Additional Health Concerns Assessment Noted Time PHQ-9 Depression Total Score: 9 01/26/20 18 7:21 AM CDT documented as of this encounter Care Teams Cake Wrapper Relationship Specialty Start Date End Date Angela Naranjo PA-C PCP - General 12/26/21 Yamile Crabtree MD [facility] [address] Pediatrics 10/22/22 Yamile Crabtree MD [address] [address] [address] Assigned Pediatric Specialist Provider 07/12/23 documented as of this encounter
--- OUTSIDE RECORDS SUMMARY | 2024-03-27 09:26 | XMS_ITS | Encounter Summary ---
Author Organization [facility] Address [facility] [place] [address] Care Team Providers Care Livestock Farmworker Name Role Phone Angela Naranjo PA-C Primary Care Provider [phone] Yamile Crabtree MD Unavailable [phone] Yamile Crabtree MD Unavailable [phone] Encounter Details Date Type Department Care Team (Latest Contact Info) Description 01/31/2024 Travel Social History Tobacco Use Types Packs/Day Years [...] Sex Assigned at Female 06/20/2023 7:53 PM STILL CLEANER Legal Sex Female 3:17 AM STILL CLEANER Gender Identity Female 06/20/2023 7:53 PM STILL CLEANER Sexual Orientation Straight 06/20/2023 7: 53 PM STILL CLEANER documented as of this encounter Plan of Treatment Upcoming Encounters Date Type Department Care Team (Late st Contact Info) Description 05/15/2024 8:45 AM STILL CLEANER Office Visit [address] [address] Meir Bethea MD 2450 [facility] [place] [address] documented as of this encounter Visit Diagnoses Not on filedocumented in this encounter Additional Health Concerns Assessment Noted Time PHQ-9 Depression Total Score: 9 01/26/20 18 7:21 AM CDT documented as of this encounter Care Teams Livestock Farmworker Relationship Specialty Start Date End Date Angela Naranjo PA-C PCP - General 12/26/21 Yamile Crabtree MD [address] [place] [phone] Pediatrics 10/22/22 Yamile Crabtree MD [address] [place] [address] Assigned Pediatric Specialist Provider 07/12/23 documented as of this encounter
--- OUTSIDE RECORDS SUMMARY | 2024-03-27 09:26 | XMS_ITS | Referral Summary ---
Author Organization [facility] Address [address] [place] [address]. [place] [address] Care Team Providers Care Natural Resources Engineer Name Role Phone Angela Naranjo PA-C Primary Care Provider [phone] Yamile Crabtree MD Unavailable [phone] Yamile Crabtree MD Unavailable [phone] Encounters Date Type Department Care Team Description 03/26/2024 Telephone [facility] [place] [address] [facility] [address] [place] [address] Renetta Whitten GC Genetic Counseling 03/16/2024 External Order Results [facility] [address] [place] [address] Outside, Provider 01/31/2024 Travel 01/31/2024 12:00 PM CDT Ancillary Procedure [facility] CT Clinic [address] 1st [place] [address] Meir Bethea MD Abnormal genetic test; Loeys-Marleny syndrome; 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); Abnormal findings on diagnostic imaging of other specified body structures; Adult congenital heart disease 01/22/2024 MyC Medical Advice [facility] [address] [address] Milla Hobbs RN Clinic Care Coordination - Follow-up 01/21/2024 Jennifer [facility] [place] [address] [place] [address] LakeMe[facility] MD Refill Request (losartan (COZAAR) 25 MG tablet) 12/30/2023 MyC Medical Advice [address] [phone] Milla Hobbs RN Clinic Care Coordination - Follow-up from Last 3 Months Allergies Active Allergy Reactions Criticality Noted Date [...] partial 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/2010 Vitamin D deficiency 01/05/2010 Immunizations Name Administration Dates Next Due TDAP [...] Sex Assigned at Female 06/20/2023 7:53 PM BOWLING BALL ASSEMBLER Legal Sex Female 3:17 AM BOWLING BALL ASSEMBLER Gender Identity Female 06/20/2023 7:53 PM BOWLING BALL ASSEMBLER Sexual Orientation Straight 06/20/2023 7: 53 PM BOWLING BALL ASSEMBLER Last Filed Vital Signs Vital Sign Reading [...] Body Mass Index 27.79 06/24/2023 12:17 PM BOWLING BALL ASSEMBLER Plan of Treatment Upcoming Encounters Date Type Department Care Team (Late st Contact Info) Description 05/15/2024 8:45 AM BOWLING BALL ASSEMBLER Office Visit [facility] [address] [phone] Meir Bethea MD [address] [place] [address] Procedures Procedure Name Priority Date/Time Associated Diagnosis [...] abnormalities in the abdomen. SHARON OJEDA DO [facility] 02/02/2024 5:31 PM CDT EXAMINATION: CT CHEST [...] SHARON OJEDA DO us Meir Bethea MD IM CT ORDERABLES Final Resu lt * - HIM Screen Colonoscopy Scan (12/06/2017) Narrative Kandace Melendrez, JUAN JOSE - 12/06/2017 Result Nursing Program Coordinator Lexie Campos DO - 12/06/2017 ??9:50 AM CDT Patient Name: Lizzie Cedotal ?Procedure Date: 12/06/2017 ? Gender: Female ? [...] Negative Result Narrative XR MAMMO BILAT SCREENING [[id number]] CLINICAL HISTORY:?This is an asymptomatic 52 y.o. patient. INDICATION FOR EXAM: Mammogram Screening. TECHNIQUE: CC & MLO views were obtained.?This digital study was evaluated with the assistance of Computer-Aided Detection. COMPARISON FILM: Yes 03/01/16 [facility] FINDINGS:?Mammographically, the breast tissue is heterogeneously dense, which could obscure detection of small masses. There are no dominant masses, suspicious micro calcifications or areas of architectural distortion. us Provider Outside IMG MAMMOGRAPHY ORDERABLES Alix l Result from Last 3 Months or Most Recently Relevant to Health Maintenance Insurance MEDICARE [employer] [place] [facility] Address: [address] [address] [place] [address] MEDICARE Toppr[place] [id number] Care Teams Natural Resources Engineer Relationship Specialty Start Date End Date Angela Naranjo PA-C PCP - General 12/26/21 Yamile Crabtree MD [facility] [address] [address] Pediatrics 10/22/22 Yamile Crabtree MD [address] [address] Assigned Pediatric Specialist Provider 07/12/23
--- OUTSIDE RECORDS SUMMARY | 2024-03-27 09:26 | XMS_ITS | Encounter Summary ---
Author Organization [facility] Address [address] [place] [address] Care Team Providers Care Educational Program Assistant Name Role Phone Angela Naranjo PA-C Primary Care Provider Yamile Crabtree MD Unavailable [phone] Yamile Crabtree MD Unavailable [phone] Reason for Visit * Reason Onset Date Comments Appointment 01/09/2018 Return Ataxia Encounter Details Date Type Department Care Team (Late st Contact Info) Description 01/09/2018 [facility] Neurology [address] [place] [address] [address] [place] [address] Nancy Barger MD [address] [place], [place] [id number] [place] [address] Appointment (Return Ataxia ) Social History Tobacco Use Types Packs/Day Years Used Date Smoking Tobacco: Never Smokeless Tobacco: Never Alcohol Use Standard Drinks/Week Comments Not Asked 0 (1 standard drink = 0.6 oz pur e alcohol) Comments No Sex and Gender Information Value Date Recorded Sex Assigned at Female 06/20/2023 7:53 PM CREATIVE GURU Legal Sex Female 3:17 AM CREATIVE GURU Gender Identity Female 06/20/2023 7:53 PM CREATIVE GURU Sexual Orientation Straight 06/20/2023 7: 53 PM CREATIVE GURU documented as of this encounter Miscellaneous Notes * Telephone Encounter - Cait Barriga - 01/09/2018 4:23 PM CDT [facility] Call Center Phone Message May a detailed message be left on voicemail: yes Reason for Call: Other: Pt is looking to schedule a follow up appt with Dr. Barger. Please give her a call back. Action Taken: Message routed to: [facility] Neurology documented in this encounter Plan of Treatment Upcoming Encounters Date Type Department Care Team (Late st Contact Info) Description 05/15/2024 8:45 AM CREATIVE GURU Office Visit [place] [id number] [place] [address] Meir Bethea MD [address] [facility] [place], [place] [id number] documented as of this encounter Visit Diagnoses Not on filedocumented in this encounter Care Teams Educational Program Assistant Relationship Specialty Start Date End Date Angela Naranjo PA-C PCP - General 12/26/21 Yamile Crabtree MD [address] [place], [place] [address] Pediatrics 10/22/22 Yamile Crabtree MD [address], [address] [place], [place] [address] Assigned Pediatric Specialist Provider 07/12/23 documented as of this encounter
--- OUTSIDE RECORDS SUMMARY | 2024-03-27 09:26 | XMS_ITS | Clinical Summary ---
Author Organization [employer] [facility] Address [place], [place] [address] Care Team Providers Care Ceramic Tile Installer Name Role Phone Angela Naranjo Primary Care Provider [phone] Allergies Active Allergy Reactions Criticality Noted Date Comments Sulfa (Sulfonamide Antibiotics) Rash Low 05/20 Medications Medication Sig Dispensed Refills Start Date End Date Status cholecalciferol (VITAMIN D) 1,000 unit capsule Take 1 capsule by mouth once daily. 0 10/06/2010 Active Walker - 4 wheelsIndications :Hereditary ataxia, unspecified (HC) For home use. Length of need: 99 walker with wheels and a seat 1 Each 03/01/2022 Active multivitamin (MVI) tablet Take 1 Tablet by mouth once daily. 0 02/14/2023 Active losartan (COZAAR) 25 mg tablet Take 25 mg by mouth once daily. 01/22/2024 Active busPIRone (BUSPAR) 30 mg tabletIndications :Generalized anxiety disorder Take 1 Tablet (30 mg) by mouth two times daily. 180 Tablet 3 03/16/2024 Active clonazePAM (KLONOPIN) 0.5 mg tabletIndications :Generalized anxiety disorder Take 1 Tablet (0.5 mg) by mouth two times daily. 180 Tablet 1 03/16/2024 Active desvenlafaxine succinate (PRISTIQ) 100 mg extended release tabletIndications :Major depressive disorder, recurrent episode, moderate (HC) Take 1 Tablet (100 mg) by mouth once daily in the morning. 90 Tablet 3 03/16/2024 Active gabapentin (NEURONTIN) 100 mg capsuleIndication s:Generalized anxiety disorder Take 1 Capsule (100 mg) by mouth two times daily. 180 Capsule 3 03/16/2024 Active QUEtiapine (SEROQUEL) 25 mg tabletIndications :Generalized anxiety disorder,Major depressive disorder, recurrent episode, moderate (HC) Take 1 Tablet (25 mg) by mouth 2 times daily if needed for Agitation (severe anxiety). 60 Tablet 2 03/16/2024 Active QUEtiapine (SEROQUEL) 25 mg tabletIndications :Major depressive disorder, recurrent episode, moderate (HC),Generalized anxiety disorder Take 1 Tablet (25 mg) by mouth 2 times daily if needed for Agitation (severe anxiety). 60 Tablet 2 08/23/2022 4 Discontinue d(Reorder (E-cancel not sent)) clonazePAM (KLONOPIN) 0.5 mg tabletIndications :Generalized anxiety disorder TAKE 1 TABLET(0.5 MG) BY MOUTH TWICE DAILY 180 Tablet 1 10/11/2023 Discontinue d(Reorder (E-cancel not sent)) desvenlafaxine succinate (PRISTIQ) 100 mg extended release tabletIndications :Major depressive disorder, recurrent episode, moderate (HC) TAKE 1 TABLET(100 MG) BY MOUTH EVERY MORNING 90 Tablet 01/22/2024 Discontinue d(Reorder (E-cancel not sent)) busPIRone (BUSPAR) 30 mg tabletIndications :HILARIA (generalized anxiety disorder) TAKE 1 TABLET(30 MG) BY MOUTH TWICE DAILY 180 Tablet 01/22/2024 Discontinue d(Reorder (E-cancel not sent)) gabapentin (NEURONTIN) 100 mg capsuleIndication s:Generalized anxiety disorder Take 1 Capsule (100 mg) by mouth two times daily. 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 Olecranon bursitis of right elbow 11/20/2020 Major depressive disorder, recurrent episode, mo derate 04/11/2020 Closed fracture of left proximal tibia marginal stable 01/31/2017 Rupture of anterior cruciate ligament of left kn ee 01/28/2017 Contusion of tibial plateau, left 01/28/2017 Menorrhagia 08/13/2013 Cyst of ovary 08/13/2013 Fibroid uterus 07/30/2013 Generalized anxiety disorder 05/30/2010 Ataxia, unspecified 03/29/2010 Vitamin D deficiency 01/05/2010 Polyp of colon Resolved Problems Problem Noted Date Diagnosed Date Resolved Date S/P THEA-BSO 08/13/2013 08/13/2013 Grief 03/29/2010 10/19/2021 MDD (major depressive disord er), recurrent, in partial 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/2010 05/23/2020 Major depressive disorder, r ecurrent episode, in partial or unspecified remission 10/23/200701/19 Encounters Date Type Department Care Team Description 03/16/2024 8:10 AM CDT Office Visit [facility] [address] [place] [address] Angela Naranjo PA Medication Management 03/15/2024 Travel 01/21/2024 Telephone [facility] [address] [place] [address] Angela Naranjo PA Medication Management (gabepentin prescription) 01/19/2024 Refill [facility] [address] [place] [address] Angela Naranjo PA Refill Request (Desvenlafaxine Succinate, Buspirone) 01/01/2024 9:30 AM CDT Orders Only [facility] [address] [place] [address] Lab, [place] Outside Order (Ordered by Milla Chou ) 01/01/2024 Travel from Last 3 Months Immunizations Name Administration Dates Next Due AMB Influenza, IIV3 (Age >=3 years)(Flu Clinic Only) 02/21/2013,03/14/2011,03/01/2009 AMB Influenza, IIV4 PF (=>6 mos Flulaval,Fluzone Fluarix)(Flu Clinic Only) 03/03/2015 COVID-19 VACCINE SPIKEVAX (M ODERNA 50MCG/0.5ML) 12YO+ PFS 03/16/2024,03/19/2023 COVID-19 vaccine (Moderna 100mcg/0.5mL) PF, MDV 09/07/2020,08/10/2020 COVID-19 vaccine (Remind-Bio NTech 30mcg/0.3mL) 12YO+ BIVALENT PF, MDV 03/01/2022 INFLUENZA, IIV3 PF (AGE >= 6 MO) 03/16/2024 Influenza A (H1N1), Inactivated 05/05/2009 Influenza, IIV3 (Age 6-35 mos) 03/14/2011 Influenza, IIV3 (Age >=3 years) 02/11/2012,04/17 Influenza, IIV4 03/25/2023,,03/07/2021,2019,03/10/2019,02/04/2018,03/19/2016,1 Influenza, IIV4 (=>6mos) MDV 02/11/2017 Tdap 03/01/2022,05/20/2010 Family History Medical History Relation Name Comments Cancer Father Leukemia Father Lung cancer Mother Cancer-breast Sister Relation Name Status Comments Brother Alive Daughter Alive Father Maternal Grandfather Maternal Grandmother Mother Paternal Grandfather Paternal Grandmother Sister Alive Son Alive Social History Tobacco Use Types Packs/Day Years Used Date Smoking Tobacco: Never Smokeless Tobacco: Never Tobacco Cessation:Counseling Given: Yes Alcohol Use Standard Drinks/Week Comments No 0 (1 standard drink = 0.6 oz pur e alcohol) PHQ-2 Answer Date Recorded PHQ-2 TOTAL SCORE 3 03/16/2024 Social Connections Answer Date Recorded Do you often feel lonely or isolated from those around you? 0 03/15/2024 Financial Resource Strain Answer Date R ecorded Difficulty of Paying Living Expenses 3 03/15/2024 Difficulty of Paying Living Expenses Not on file 03/15/2024 Food Insecurity Answer Date Recorded Do you worry your food will run out before you are able to buy more? 1 03/15/2024 Transportation Needs Answer Date Record ed Does lack of transportation keep you from medica l appointments? 1 03/15/2024 Does lack of transportation keep you from work, meetings or getting things that you need? 1 03/15/2024 Housing Stability Answer Date Recorded What is your housing situation today? 1 03/15/2024 Sex and Gender Information Value Date Recorded Sex Assigned at Female 05/24/2020 3:18 PM TOMOGRAPHY TECHNOLOGIST Gender Identity Female 05/24/2020 3:18 PM TOMOGRAPHY TECHNOLOGIST Sexual Orientation Straight 05/24/2020 3: 18 PM TOMOGRAPHY TECHNOLOGIST Obstetrics History Para Term AB IAB SAB Ectopic Multiple Livin g Live Births 3 3 Date Outcome GA Total Labor Labor/2nd/3rd Weight Sex Type Anes PTL Annemarie A1 A5 Name Clin Last Filed Vital Signs Vital Sign Reading Time Taken Comments Blood Pressure 98/72 03/16/2024 8:11 AM CDT Pulse 83 03/16/2024 8:11 AM CDT Temperature 36.6 ??C (97.9 ??F) 05/16/2022 12:[address] Respiratory Rate 19 05/16/2022 12:12 PM TOMOGRAPHY TECHNOLOGIST Oxygen Saturation 97% 03/16/2024 8:11 AM CDT Inhaled Oxygen Concentration - - Weight 70.3 kg (155 lb) 03/16/2024 8:11 AM CDT Height 154 cm (5' 0.63) 03/16/2024 8:11 AM CDT Body Mass Index 29.65 03/16/2024 8:11 AM CDT Plan of Treatment Health Maintenance Due Date Last Done Comments Zoster (shingles) series for age 50+ (1 of 2) 2016 Mammogram for age 45-75 05/15/2024 05/15/20 23, 09/07/2020, 08/31/2020, Additional history exists BMI (ht and wt on same day) for age 18+ 03/16/2025 03/16/2024, 06/19/2021, 12/17/2018, Additional history exists Depression screening for age 12+ 03/16/2025 03/16/2024, 02/28/2023, 02/28/2023, Additional history exists Colonoscopy through age 75 02/27/2026 02/27/2021, Lipids for age 45-75 03/16/2029 03/16/2024, 03/06/2023, 04/23/2019, Additional history exists Tetanus booster 03/01/2032 03/01/2022, 05/2010, 05/20/2010 Tdap Completed 03/01/2022, 05/20/2010 HIV for age 15-65 Completed 03/06/2023 Hepatitis C screening for age 18-79 Completed 03/06/2023 COVID-19 vaccine series Completed 03/16/20, 03/19/2023, 03/01/2022, Additional history exists Influenza for age 50-64 Completed 03/16/20, 03/25/2023, 02/21/2022, Additional history exists Pneumococcal series for age 6-64 Aged Out No longer eligible based on patient's age to complete this topic Procedures Procedure Name Priority Date/Time Associated Diagnosis Comments TSH Routine 03/16/2024 9:13 AM CDT Weight gain COMP METABOLIC PANEL Routine 03/16/2024 9:13 AM CDT Diabetes mellitus screening LIPID PANEL W REFLEX MEASURED LDL Routine 03/16/2024 9:13 AM CDT Screening cholesterol level HEMOGLOBIN A1C Routine 03/16/2024 9:13 AM CDT Diabetes mellitus screening COMP METABOLIC PANEL Routine 01/01/2024 9:40 AM CDT 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 SCAN-MAMMOGRAPHY REPORT 05/15/2023 12:00 AM TOMOGRAPHY TECHNOLOGIST ANTI HIV 1/2 Routine 03/06/2023 10:10 AM CDT Screening for HIV (human immunodeficiency virus) ANTI HCV Routine 03/06/2023 10:10 AM CDT Need for hepatitis C screening test AL COLONOSCOPY W/BIOPSY SINGLE/MULTIPLE Routine 02/27/2021 12:00 AM CDT Diarrhea, unspecified type Abnormal CT of the abdomen History of colon polyps from Last 3 Months or Most Recently Relevant to Health Maintenance Results * HEMOGLOBIN A1C (03/16/2024 9:13 AM CDT) HEMOGLOBIN A1C 5.5 <5.7 % of total Hgb [email or web address] Comment: For the purpose of screening for the presence of diabetes: <5.7% ? Consistent with the absence of diabetes 5.7-6.4% ?Consistent with increased risk for diabetes ?(prediabetes) > or =6.5% ??Consistent with diabetes This assay result is consistent with a decreased risk of diabetes. Currently, no consensus exists regarding use of hemoglobin A1c for diagnosis of diabetes in children. According to [place] Diabetes Association (ADA) guidelines, hemoglobin A1c <7.0% represents optimal control in non- diabetic patients. Different metrics may apply to specific patient populations. Standards of Medical Care in Diabetes(ADA). ?? Blood BLOOD SPECIMEN / Unknown 03/16/2024 9:13 AM CDT 03/16/2024 9:15 AM CDT Narrative [facility] - 03/17/2024 4:00 AM CDT FASTING:YES FASTING: YES Angela MCDONALD CHEMISTRY GO[employer] / ?.?? [facility] [address] [place] [address], [facility] [address] [place] [address] * (ABNORMAL) LIPID PANEL W REFLEX MEASURED LDL (03/16/2024 9:13 AM CDT) [facility] Signature CHOLESTEROL, TOTAL 208(H) <200 mg/dL [facility] HDL CHOLESTEROL 66 > OR = 50 mg/dL [facility] TRIGLYCERIDES 64 <150 mg/dL [facility] LDL-CHOLESTEROL 126(H) mg/dL (calc) [facility] Comment: Reference range: <100 Desirable range <100 mg/dL for primary prevention; ?? <70 mg/dL for patients with CHD or diabetic patients with > or = 2 CHD risk factors. LDL-C is now calculated using the Jameson calculation, which is a validated novel method providing better accuracy than the Friedewald equation in the estimation of LDL-C. Camron DICK et al. SERENA. 2013;310(19): 1455-7800 (http://education.[facility].com/faq/PHU581) CHOL/HDLC RATIO 3.2 <5.0 (calc) [facility] NON HDL CHOLESTEROL 142(H) <130 mg/dL (calc) [facility] Comment: For patients with diabetes plus 1 major ASCVD risk factor, treating to a non-HDL-C goal of <100 mg/dL (LDL-C of <70 mg/dL) is considered a therapeutic option. Blood BLOOD SPECIMEN / Unknown 03/16/2024 9:13 AM CDT 03/16/2024 9:15 AM CDT Narrative [facility] - 03/17/2024 4:41 AM CDT FASTING:YES FASTING: YES Angela MCDONALD CHEMISTRY Performing Organization Address [facility]/ZIP Co de Phone Number [facility] / ?.?? [address] [address], [address] [address] * TSH (03/16/2024 9:13 AM CDT) [facility] TSH 0.79 0.40 - 4.50 mIU/L [facility] Blood BLOOD SPECIMEN / Unknown 03/16/2024 9:13 AM CDT 03/16/2024 9:15 AM CDT Narrative [facility] - 03/17/2024 6:40 AM CDT FASTING:YES FASTING: YES Angela MCDONALD CHEMISTRY Performing Organization Address [facility]/ZIP Co de Phone Number [facility] / ?.?? [address] [address], [address] [address] * COMP METABOLIC PANEL (03/16/2024 9:13 AM CDT) Only the most recent of2 resultswithin the time period is included. GLUCOSE 90 65 - 99 mg/dL [facility] Comment: ? Fasting reference interval UREA NITROGEN (BUN) 13 7 - 25 mg/dL [facility] CREATININE 0.89 0.50 - 1.03 mg/dL [facility] EGFR 76 > OR = 60 mL/min/1. 73m2 [facility] BUN/CREATININE RATIO SEE NOTE: (calc) [facility] Comment: ?? Not Reported: BUN and Creatinine are within ?? reference range. ? SODIUM 141 135 - 146 mmol/L [facility] POTASSIUM 4.2 3.5 - 5.3 mmol/L [facility] CHLORIDE 108 98 - 110 mmol/L [facility] CARBON DIOXIDE 27 20 - 32 mmol/L [facility] CALCIUM 9.0 8.6 - 10.4 mg/dL [facility] PROTEIN, TOTAL 6.5 6.1 - 8.1 g/dL [facility] ALBUMIN 4.0 3.6 - 5.1 g/dL [facility] GLOBULIN 2.5 1.9 - 3.7 g/dL (calc) [facility] ALBUMIN/GLOBULIN RATIO 1.6 1.0 - 2.5 (calc) [facility] BILIRUBIN, TOTAL 0.4 0.2 - 1.2 mg/dL [facility] ALKALINE PHOSPHATASE 73 37 - 153 U/L [facility] AST 19 10 - 35 U/L [facility] ALT 12 6 - 29 U/L [facility] Blood BLOOD SPECIMEN / Unknown 03/16/2024 9:13 AM CDT 03/16/2024 9:15 AM CDT Narrative [facility] - 03/17/2024 4:41 AM CDT FASTING:YES FASTING: YES Angela MCDONALD CHEMISTRY [employer] / ?.?? [facility] [address] [place] [address], [facility] [address] [place] [address] * SCAN-MAMMOGRAPHY REPORT (05/15/2023 12:00 AM TOMOGRAPHY TECHNOLOGIST) Anatomical Region Laterality Modality Other Scanner OTHER * ANTI HCV (03/06/2023 10:10 AM CDT) HEPATITIS C ANTIBODY Non-Reacti ve Non-React shante 03/06/2023 4:[address] [facility] Comment:Please note, per www .CDC.gov: If a patient is known to be at high risk of HCV infection, or is symptomatic, and the physician's suspicion of HCV infection is high, HCV RNA testing is often employed and is of diagnostic value, even after an initial negative anti-HCV test result. Blood BLOOD SPECIMEN / Unknown Venipuncture / Unknown 03/06/2023 10:10 AM CDT 03/06/2023 10:13 AM CDT Angela MCDONALD SEND OUTS Performing Organization Address City/[facility] Co de Phone Number [facility] [address] [place] [address], * ANTI HIV 1/2 (03/06/2023 10:10 AM CDT) HIV-1/HIV-2 SCREEN Non-Reacti ve Non-Reacti ve 03/06/2023 4:[address] [facility] Comment:HIV-1 p24 and HIV-1/ HIV-2 Ab Not Detected. Blood BLOOD SPECIMEN / Unknown Venipuncture / Unknown 03/06/2023 10:10 AM CDT 03/06/2023 10:13 AM CDT Angela MCDONALD SEND OUTS Performing Organization Address City/[facility]/ZIP Co de Phone Number [facility] [address] [place] [address], [place] * AL COLONOSCOPY W/BIOPSY SINGLE/MULTIPLE (02/27/2021 12:00 AM CDT) Camron Riley MD PB - DIGESTIVE SY STEM SERVICES from Last 3 Months or Most Recently Relevant to Health Maintenance Advance Directives * Full Code (Latest Code Status on File) Date Activated Date Inactivated Comments 08/13/2013 6:06 AM 08/16/2013 12:58 PM Care Teams Ceramic Tile Installer Relationship Specialty Start Date End Date Angela Naranjo PA [address] [place] [address] PCP - General Physician Washer Assembler 06/16/15
--- OUTSIDE RECORDS SUMMARY | 2024-03-27 09:26 | XMS_ITS | Encounter Summary ---
Author Organization [place] Address [address] [place] [address] Care Team Providers Care Software Qa Manager Name Role Phone Angela Naranjo PA-C Primary Care Provider [phone] Yamile Crabtree MD Unavailable [phone] Yamile Crabtree MD Unavailable [phone] Reason for Visit * Reason Onset Date Comments Clinic Care Coordination - Follow-up 12/30/2023 Encounter Details Date Type Department Care Team (Latest Contact Info) Description 12/30/2023 [facility] Medical Advice [facility] [address] [address] Milla Franks RN Clinic Care Coordination - Follow-up Social [...] Sex Assigned at Female 06/20/2023 7:53 PM CULINARY DIRECTOR Legal Sex Female 3:17 AM CULINARY DIRECTOR Gender Identity Female 06/20/2023 7:53 PM CULINARY DIRECTOR Sexual Orientation Straight 06/20/2023 7: 53 PM CULINARY DIRECTOR documented as of this encounter Miscellaneous Notes * Telephone Encounter - Milla Franks RN - 03/17/2024 10:17 AM CDT Called [facility] in [place]. * Telephone Encounter - Milla Franks RN - 01/07/2024 11:48 AM CDT Date: 01/07/2024 Time of Call: 3:37 PM Diagnosis: increased creatnine [ TORB ] Ordering provider: Meir Bethea MD Order: BMP in 2 months Order received by: Milla Franks RN Follow-up/additional notes: updated patient * Addendum Note - Milla Franks RN - 12/30/2023 8:39 AM CDTAddended by: MILLA FRANKS on: 03/17/2024 10:27 AM Modules accepted: Orders documented in this encounter Plan of Treatment Upcoming Encounters Date Type Department Care Team (Late st Contact Info) Description 05/15/2024 8:45 AM CULINARY DIRECTOR Office Visit [facility] [address] [address] Meir Bethea MD [address] [place] [id number] documented as of this encounter 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
[2024-03-27] MEDS: KETOROLAC 15 MG/ML inj IVP ×2 (09:38→10:19)
== END 2024-03-27 10:23 | disposition home or self-care (01) ==
PROVIDERS: Emergency Provider Family Medicine; PCP Physician Assistant
DX: G43.909 Migraine, unspecified, not intractable, without status migrainosus (principal)
CPT/HCPCS: 96365; 96375; 99283; 99284; J1200; J1885; J2765; J7030

== ENCOUNTER 2024-06-03 09:28 | Outpatient (CLI) | payer MEDICARE, MEDICAID, SELFPAY ==
--- NOTE | 2024-06-03 09:45 | CRLHL7_ITS ---
For Patients: As a result of the Cures Act, medical imaging exams and procedure reports are released immediately into your electronic medical record. You may view this report before your referring provider. If you have questions, please contact your health care provider. DIGITAL DIAGNOSTIC BILATERAL MAMMOGRAM USING TOMOSYNTHESIS AND COMPUTER-AIDED DETECTION LEFT BREAST ULTRASOUND CLINICAL HISTORY: LEFT breast mass/asymmetry. COMPARISON: CT 01/31/2024. Mammograms 05/15/23, 09/07/20, 08/31/20. TECHNIQUE: Digital BILATERAL mammogram in four projections with computer-aided detection. Tomosynthesis was used in this interpretation. Real-time ultrasound imaging of LEFT breast with imaging documentation. BREAST COMPOSITION: There are scattered areas of fibroglandular density. FINDINGS: 3D CC/MLO BILATERAL mammogram images submitted. Fibroglandular tissue is similar compared to prior studies. No architectural distortion or suspicious mass. No suspicious calcifications or adenopathy. Targeted LEFT breast ultrasound performed at 3 o`clock 6 cm from the nipple corresponding to the area on CT. Normal dense fibroglandular tissue is present. No fibrocystic change or mass. IMPRESSION: No suspicious findings. No evidence of malignancy. RECOMMENDATIONS: Routine screening mammography. A lay language report of this examination will be provided to the patient. BI-RADS Category 2: Benign Dictated by Quintin Tierney MD @ 06/03/2024 11:10:05 AM jj/Dictated by: Quintin Tierney MD @ 06/03/2024 11:10:00 AM (Electronically Signed)
--- NOTE | 2024-06-03 10:15 | CRLHL7_ITS ---
For Patients: As a result of the Cures Act, medical imaging exams and procedure reports are released immediately into your electronic medical record. You may view this report before your referring provider. If you have questions, please contact your health care provider. SEE DIGITAL DIAGNOSTIC BILATERAL MAMMOGRAM PERFORMED SAME DAY CRL:castro erazo/Dictated by: Quintin Tierney MD @ 06/03/2024 11:10:00 AM (Electronically Signed)
== END 2024-06-03 09:29 | disposition home or self-care (01) ==
LOC: MAMMO 09:30
PROVIDERS: PCP Physician Assistant; Visit Provider Physician Assistant
DX: N63.24 Unspecified lump in the left breast, lower inner quadrant (principal)
CPT/HCPCS: 76642; 77066; G0279

== ENCOUNTER 2024-07-30 14:53 | Outpatient (CLI) | payer MEDICARE, MEDICAID, SELFPAY | END 2024-07-30 14:54 | disposition home or self-care (01) | LOC: NFLDREF 08-02 23:56 | PROVIDERS: PCP Physician Assistant; Referring Provider Physician Assistant; Visit Provider Nurse Practitioner Family | DX: R82.90 Unspecified abnormal findings in urine (principal); R30.9 Painful micturition, unspecified | CPT/HCPCS: 87086 ==

== ENCOUNTER 2024-10-23 14:46 | Outpatient (CLI) | payer MEDICARE, MEDICAID, SELFPAY | END 2024-10-23 14:47 | disposition home or self-care (01) | LOC: NFLDREF 10-24 10:21 | PROVIDERS: PCP Physician Assistant; Referring Provider Physician Assistant; Visit Provider Physician Assistant Surgical | DX: R30.0 Dysuria (principal); N89.8 Other specified noninflammatory disorders of vagina | CPT/HCPCS: 87086 ==